=== PATIENT | female | born 1940 | race Caucasian/White ===

== ENCOUNTER 2021-03-26 06:48 | Outpatient (CLI) | payer SELFPAY, OTHER ==
--- NOTE | 2021-03-26 07:01 | CT_ITS ---
STUDY: CTA OF THE BRAIN REASON FOR EXAM: Female, 80 years old. 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 Data acquisition was obtained from the skull base through the vertex following intravenous administration of IV 75mL Isovue-[id number]. MIP images were reconstructed from the axial data set. Post-processing of the angiographic images was performed, with multiplanar reformation and 3D reconstruction. Individualized dose optimization techniques were used for this CT. COMPARISON: None. 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 Normal bilateral petrous carotid arteries. Normal right cavernous carotid artery with a normal supraclinoid bifurcation. Normal left cavernous carotid artery with a normal supraclinoid bifurcation. Normal right A1 segments of the anterior cerebral artery. Normal left A1 segments of the anterior cerebral artery. Normal intact anterior communicating artery (ACOM). Normal bilateral A2 segments of the anterior cerebral arteries. Normal right M1 and M2 segments of the middle cerebral arteries, with a normal M1 bifurcation. Normal left M1 and M2 segments of the middle cerebral arteries, with a normal M1 bifurcation. Normal right posterior communicating artery (PCOM). Normal left posterior communicating artery (PCOM). Normal bilateral vertebral arteries. Normal basilar artery with a normal basilar bifurcation. The visualized bilateral superior cerebellar (SCA) arteries are normal. Normal bilateral P1, P2 and visualized P3 segments of the posterior cerebral arteries. There is no demonstrated aneurysm of the [place] of [place]. There is no demonstrated abnormality of the visualized brain. 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 Electronically Signed: King Faye MD at 11:16 EST ,
[2021-03-26 07:21] LABS: CREATININE FINGERSTICK 1.2 mg/dL (0.55-1.02)
== END 2021-03-26 23:59 | disposition home or self-care (01) ==
PROVIDERS: PCP Family Medicine; Referring Provider Ophthalmology; Visit Provider Ophthalmology
DX: I72.0 Aneurysm of carotid artery (principal)
CPT/HCPCS: 70481; Q9967

== ENCOUNTER 2024-10-01 16:56 | Emergency (ER) | payer OTHER, SELFPAY ==
[2024-10-01 16:58] VITALS: BP 165/72; PULSE 77; RESP 14; TEMP 36.6; O2SAT 98; BMI 26.9
--- NOTE | 2024-10-01 18:26 | CT_ITS ---
PROCEDURE: SINUS/FACIAL BONE 10/01/2024 REASON FOR EXAM: FACIAL TRAUMA TECHNIQUE: SINUS/FACIAL BONE Coronal and Sagittal reconstruction series were provided. One or more dose reduction techniques were used (e.g., Automated exposure control, adjustment of the mA and/or kV according to patient size, use of iterative reconstruction technique). RADIATION DOSE SUMMARY: CTDlvol: - mGy DLP: - mGycm COMPARISON: None. FINDINGS: No acute bony abnormalities. No acute orbital abnormalities. The nasopharynx appears unremarkable. No paranasal sinus or mastoid cells fluid or mucosal thickening. Left frontal scalp hematoma. Streaky artifact from vascular coiling at the left internal carotid artery extending to the orbital apex. No visualized acute intracranial abnormalities. The temporomandibular joints are well aligned. CT/Sinus/Facial Bone IMPRESSION: No acute injuries to the maxillofacial bones. Left frontal scalp hematoma. Reading Location: [id number]
--- NOTE | 2024-10-01 18:26 | CT_ITS ---
PROCEDURE: BRAIN/HEAD WITHOUT CONTRAST 10/01/2024 REASON FOR EXAM: HEAD TRAUMA TECHNIQUE: BRAIN/HEAD WITHOUT CONTRAST Coronal and Sagittal reconstruction series were provided. One or more dose reduction techniques were used (e.g., Automated exposure control, adjustment of the mA and/or kV according to patient size, use of iterative reconstruction technique. RADIATION DOSE SUMMARY: CTDlvol: - mGy DLP: - mGycm COMPARISON: None. FINDINGS: Brain: Low density in the periventricular white matter suggests mild chronic small vessel ischemic changes. No acute territorial infarction. No acute intracranial hemorrhage. Status post vascular intervention and coiling near the left internal carotid artery and orbital apex. The orbits are intact. CSF Spaces: Moderate generalized cerebral atrophy Sinuses/Mastoids: Clear at visualized levels Bones: No acute bony abnormalities. Soft tissues: Left frontal scalp hematoma. CT/Brain/Head without Contrast IMPRESSION: No acute intracranial abnormalities. Reading Location: [id number]
--- NOTE | 2024-10-01 18:26 | CT_ITS ---
PROCEDURE: SPINE CERVICAL WITHOUT CONTRAS 10/01/2024 REASON FOR EXAM: FALL TECHNIQUE: SPINE CERVICAL WITHOUT CONTRAS Coronal and Sagittal reconstruction series were provided. One or more dose reduction techniques were used (e.g., Automated exposure control, adjustment of the mA and/or kV according to patient size, use of iterative reconstruction technique. RADIATION DOSE SUMMARY: CTDlvol: 29.38 mGy DLP: 668.06 mGycm COMPARISON: None. FINDINGS: Alignment: Normal. Vertebrae: No acute fractures. Soft Tissues: Unremarkable. 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 Lungs are clear. CT/Spine Cervical without Contras IMPRESSION: No acute injury to the cervical spine. Reading Location: [facility], [facility]
[2024-10-01 19:30] VITALS: BP 138/78; PULSE 78; O2SAT 99
--- OUTSIDE RECORDS SUMMARY | 2024-10-01 19:33 | XMS RPT_ITS | CCD ---
Author Organization [facility] Care Team Providers Care Federal Aid Coordinator Name Role Phone Unavailable Primary Care Provider UnavailReji Cruz Unavailable Papo Ayala DO Primary Care Provider Reji Washington Unavailable Papo Ayala DO Primary Care Provider SHARDA ESCALANTE Attending Unavailable SHANIKA MULLEN Attending Unavailable SHANIKA MULLEN Admitting Unavailable PAIGE HAMMONDS Referring Unavailable Medications Current Medications Medication Drug Class(es) Dates Sig (Normalized) Sig (Original) acetaminophen 325 mg oral tablet (2 sources) Start: 07-14-2021 End: 08-13-2021 take 2 tablets by mouth every four hours as needed acetaminophen (TYLENOL) 325 mg tablet 2 tablets by ORAL/FEEDING TUBE route every 4 hours as needed for pain. 120 tablet 0 07/14/2021 08/13/2021 Active Comment on above: 2 tablets by ORAL/FE EDING TUBE route every 4 hours as needed for pain. 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, nonruptured] Chronic Other and ill-defined cerebrovascular disease (1 source) Cerebral aneurysm, nonruptured; Translations: [Carotid-cavernou s fistula] Onset: 07-11-2021 Chronic Past or Other Problems Problem Classification Problem Date Documented Da te Episodic/Chronic Blindness and vision defects (1 source) Unspecified visual disturbance; Translations: [Vision changes] Onset: 07-11-2021 Episodic Results Test Name Value Interpretation Reference [facility] Telephone (NSEVMN) WILL BIANCHIIAM ([id number]) 1940 F Date Time Provider Department 01/07/22 REGAN DANIELLE During your visit today, we recorded the following information about you: Regan Danielle RN 01/07/2022 11:11 AM Signed Neuro IR nurse coordinator was told by family member that the angiogram scheduled for 01/11/22 was cancelled. I spoke with son Lyndsay, who confirmed they decided to cancel the angio for 01/11, had called to cancel (unknown who he called), and wanted to wait until after pt's eye appt next week to reschedule. Reviewed with Lyndsay the indication for the angiogram s/p symptomatic left carotid cavernous fistula coil embo 07/11/21 w/. Pt's vision is the best it's been in a long time Lyndsay stated. Asked Lyndsay to be sure to let us know about angio r/s decision (either yes or no) and he stated he would. If they do not want to r/s then check with Dr Hammonds about possible other imaging f/u. 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 Patient chose 01/11/[address] Mcgarry. This nurse will mail info on procedure to patient. Patient denies allergy to contrast dye, reports she is not diabetic, and does not currently take any medications. Will mail lab orders as well for CBC and CMP. Gave office number if any questions arise. JENNIFER Reyes 12/21/2021 11:44 AM Signed Received a call from patient's son Lyndsay Bianchi in reference to the appointment that is set for Jan.11 for a procedure. He is inquiring about whether or not the appointment is necessary since the patient has been doing well with no issues and also states that the patient has an upcoming appointment at [place] for Jan.18. Please call Lyndsay Bianchi at [phone] Mayra Carter RN 12/21/2021 12:33 PM Signed Spoke with patient's son, Lyndsay. Reviewed need for DSA to confirm complete occlusion of fistula. He verbalized understanding. Discussed angiogram and labs needed. Discussed that letter was mailed with information, he will monitor for it. Lyndsay reports that his mom has an eye appointment on 01/18/22. Also updated contact information. Lyndsay states that primary contact should be his brother, Abelardo, for any medical scheduling or questions. This nurse updated chart. Lyndsay also asked about financial information, this nurse gave number for financial counseling to discuss costs. Lyndsay appreciated phone call. This nurse gave office number in case any future questions or concerns arise. 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] 07/11/2021 Decreased vision of left eye [H54.62] 07/13/2021 Encounter Status:Closed by MAYRA CARTER on 12/17/21 [facility] CNNURSEon 07-26-2021 CNNURSE Nurse Visit (NECVS8) ALBERTO BIANCHI ([id number]) 1940 F Date Time Provider Department 07/26/21 11:00 AM CEREBROVASCULAR NURSE SURGICALNECVS8 During your visit today, we recorded the following information about you: Pulse Blood pressure 82/minute 136/67 Paola Dailey RN 07/26/2021 1:32 PM Signed [facility] Post-Op Follow Up Visit Alberto Bianchi [facility]#: [id number] Date of Service: 07/26/2021 Primary Care Provider: No primary care provider on file. Symptomatic Carotid cavernous fistula s/p direct venous access coil embo 07/13/[address] Mims with Dr. Hammonds assisting f/up with Dr. Hammonds's office FOLLOW UP VISIT Alberto Bianchi is a 80 year old female, who presents for neurologic evaluation following Infraorbital approach to obtain venous access for CCF embolization and vein ligation of left carotid-cavernous fistula on 07/13/2021. This is 2 week PCP: No primary care provider on file. Referring Provider: Dr. Paige Hammonds Reason for Visit: wound check Hypertension NA Coronary Artery Disease NA Diabetes NA Obesity NA Dyslipidemia NA Tobacco Use (Please Update Smoking History) NA Stroke NA Intracranial Aneurysm NA Past Medical History: ACTIVE PROBLEM LIST Carotid-Cavernous Fistula Decreased Vision of Left Eye No past surgical history on file. Allergies: Patient has no known allergies. Medications: Current Outpatient Medications Medication Sig - acetaminophen (TYLENOL) 325 mg tablet 2 tablets by ORAL/FEEDING TUBE route every 4 hours as needed for pain. No current facility-administered medications for this visit. Social History Tobacco Use - Smoking status: Never Smoker - Smokeless tobacco: Never Used Substance Use Topics - Alcohol use: Not on file - Drug use: Not on file Review of Systems Neurological: Positive for weakness. Negative for aphasia, dizziness, headaches, memory difficulty, numbness/tingling and slurred speech. Patient Entered Questionnaires PROMIS/NeuroQoL Score Percentiles Physical Health 07/26/2021 Physical Function Percentile 4 Sleep Percentile 54 Fatigue Percentile 10 Pain Interference Percentile 84 PROMIS SOCIAL ROLE SCORE 07/26/2021 Social Role Satisfaction Percentile 27* Mental Health 07/26/2021 NeuroQol Cognitive Function Percentile 27* General Self-Efficacy Percentile 82 PROMIS Global Health Scale 07/26/2021 Physical Health Percentile 78 Mental Health Percentile 82 Percentiles provide an indication of how a patient's score ranks in relation to the [place] general population. > 31st percentile is within normal limits or better * < 31st percentile is at least ? SD worse than population, which may be clinically relevant < 16th percentile is at least 1 SD worse than population and warrants attention Depression Screening: PHQ-9 07/26/2021 Score 5 Self-Harm Response 0 PHQ-9 Scores: PHQ-9 Self-Harm (Item 9) Response: 0 - 9 No to Mild depression 0 - Not at all 10 - 14 Moderate depression 1 - Several Days > 15 Severe depression 2 - More than half the days 3 - Nearly every day Sleep Apnea Probability Score 07/26/2021 Sleep Apnea Screen V2 40.47 (Sleep study not recommended) Paola Dailey RN PHYSICAL EXAMINATION BP 136/67 (BP Site: Right Arm, BP Position: Sitting, BP Cuff Size: Regular Adult) Pulse 82 SpO2 96% Left periorbital incision clean, dry, and sutures intact. No redness, swelling, or drainage present. Stroke Mechanism and Scales IMPRESSION Sutures removed under the supervision of Dr. Hammonds and associates. Discussed continued wound care education and instructions and when to report for emergent care. Return to clinic for follow up appointment with Sharda Escalante Np on 08/07/21 for virtual visit. SIGNATURE Paola Dailey RN Referring Provider: PAIGE HAMMONDS [[id number]] Allergies As of Date: 07/26/2021 (No Known Allergies) Date Reviewed: 07/26/2021 Reviewed by: Ayanna Childs - Fully Assessed Reason for Visit: Post Op [174] Primary Visit Diagnosis:Carotid-ciro nous fistula [I67.1] Prescriptions as of 07/26/2021 - acetaminophen (TYLENOL) 325 mg tablet 2 tablets by ORAL/FEEDING TUBE route every 4 hours as needed for pain. 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 attempt made. No answer. Prescriptions as of 07/18/2021 - acetaminophen (TYLENOL) 325 mg tablet 2 tablets by ORAL/FEEDING TUBE route every 4 hours as needed for pain. 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] 07/11/2021 Decreased vision of left eye [H54.62] 07/13/2021 Encounter Status:Closed by CHRISTINE MORALES on 07/18/21 [facility] CNDSon 07-14-2021 CNDS HNO ID: [id number] Author: Julian Mar APRN.SCROLL MACHINE OPERATOR Service: Neurosurgery Author Type: Nurse Practitioner Type: Discharge Summary Filed: 07/14/2021 5:09 PM Note Text: Attestation signed by Shanika Mullen MD at 07/16/2021 8:24 AM Shanika Mullen MD DISCHARGE SUMMARY NEURO STROKE PATIENT NAME: Alberto Bianchi ADMISSION DATE: 07/10/2021 DISCHARGE DATE: 07/14/2021 Attending Physician: Shanika Mullen MD PCP: No primary care provider on file. Code Status: Not on file Highest Readmission Risk Score: 11 The 30 day readmissions risk score is derived from an internally validated risk model which evaluates patient level characteristics, utilization history, medication orders and lab results up until the day of discharge. Patients with a score of 40 or above are considered highest risk for readmission. Specific patient level drivers will be listed at the bottom of the summary. Reason for Hospitalization: Carotid cavernous fistula Principal Problem: Carotid-cavernous fistula POA: Yes Resolved Problems: * No resolved hospital problems. * Operations During Hospitalization: None Procedures During Hospitalization: 07/11/2021 Diagnostic angiogram: 1. 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 Venous filling of the intercavernous sinus, left posterior cavernous sinus, left IOV and left facial vein are demonstrated. Bilateral inferior petrosal sinuses are not visualized, possibly occluded 2. Severe proximal cervical large vessel tortuosity, limiting catheterization 07/12/2021 Angiogram: Unsuccessful attempt at embolization 07/13/2021: Angiogram: Infraorbital approach to obtain venous access for CCF embolization and vein ligation 07/14/2021 pt is having no pain, ambulating, eating, voiding, and passing flatus. Updated dr. Mullen and Dr. Hammonds. Pt is ready for DC today. Stroke Risk Factors: Hypertension NA Coronary Artery Disease NA Diabetes NA Obesity NA Dyslipidemia NA Tobacco Use (Please Update Smoking History) NA Stroke NA Intracranial Aneurysm NA Body Mass Index (BMI) BMI: 0 Total Cholesterol (at time of admission) No results found for this basename: chol:1 HDL (at time of admission) No results found for this basename: hdl:1 LDL (at time of admission) No results found for this basename: ldl:1 HbA1c No results found for: HBA1C Tests/Procedures Performed: 07/11/2021 CTA head/ Neck: IMPRESSION: No hemodynamically significant stenosis or large vessel occlusion. 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 ?MRI with arterial spin labeling sequence or digital subtraction angiography should be considered to confirm as clinically warranted. Hospital Course: The patient was emergently admitted through the Emergency Department to the [facility] with worsened vision and found to have CCF on CTA. The patient underwent a diagnostic angiogram which confirmed left carotid-cavernous fistula from left meningohypophyseal branches and small right carotid to cavernous small collaterals. The patient underwent a unsuccessful arterial embolization on 07/12. She subsequently underwent a successful Infraorbital approach to obtain venous access for CCF embolization and vein ligation on 07/13/2021 The patient tolerated the procedure and was taken to PACU, and then to the hospital surgical floor when PACU criteria was made. The patient was then transferred up to Neuro SDU hospital room for postoperative management. Patient was fitted with fitted with sequential compression devices for DVT prophylaxis. The patient was discharged on POD # 1 in stable condition. Complete and comprehensive discharge instructions were provided to the patient as well as necessary prescriptions. The patient had no further questions and was advised to call with any questions, concerns, or problems. Patient's pain was well controlled with Oral Pain Medications. Patient was hemodynamically stable postoperatively. Consulting Teams During Hospitalization: Opthalmology Treatment Team: Attending Provider: Shanika Mullen MD Nurse Practitioner: Cailin Link APRN.SCROLL MACHINE OPERATOR Patient Condition @ Discharge: Good Discharge Disposition: Home with Relative PHYSICAL EXAM: General: AANDO x 3 to name, place and time; no apparent distress. Lungs: Clear to auscultation bilaterally. No excessive effort. Cardiac: RRR, no m/r/g Abdomen: soft, nontender, nondistended, + BS x 4 Skin: left eye incision well approximated, secure with sutures. Right radial site clean/dry/intact, no crepitus or pain noted. Psychiatric: Appropriate mood and af (more content not included)... [facility] THERAPY NTon 07-14-2021 THERAPY NT HNO ID: [id number] Author: Mare Candelario, OTR/L Service: Occupational Therapy Author Type: Occupational Therapist Type: Therapy (PT/OT/Speech/Resp) Filed: 07/14/2021 9:48 AM Note Text: Occupational Therapy Evaluation SERVICE DATE: 07/14/2021 SERVICE TIME: 0842 to 0921 ROOM: [address] Recommended Discharge Disposition: Home Anticipated Discharge Needs: Physical Assist at Home Physical Assist at Home for: Transportation;Shopping ;Safety;Stairs;Meals;La undry;Cleaning OT 6 Clicks Score: 23 Current Hospital Course: presenting with OSH CTA c/f bilateral CCF in setting of worsening vision and diplopia over past 1 week. 07/13/21 Infraorbital approach to obtain direct venous access for CCF coil embolization and inferior orbital vein ligation Reason for Hospital Admission: Carotid-cavernous fistula Relevant Past Medical History: 80 year old right-handed female with PMHx b/l cataracts surgery in 2006 with recent scar revision in 03/2021 Response to Therapy Interventions: Good participation in activities Pt tolerated session well. Appears and reports no further visual impairments and able to successfully navigate environment in hospital setting. No further acute OT needs anticipated at this time. Mild cognitive impairment present, however, pt reporting cognitive changes prior to admission and not affecting IND at home. Will d/c OT orders at this time. Cognition/Communication Deficits Orientation Deficits: Not oriented to Time Responsiveness: Alert, Awake Follows Commands: 3-step Commands Cognitive Clinical Tests and Screens: 4AT Screening Cognitive Activities Performed: reorientation as needed 4AT Screening Assess alertness (ask patient to state their name and address): Normal (fully alert, but not agitated, throughout assessment) Ask patient: age, date of , current year, and current location: 1 mistake Ask patient to tell me the months of the year backwards order, starting with January: Starts but states <7 months / refuses to start Acute change or fluctuating mental status: No 4AT Score: 2 Delirium Positive/Negative: Negative Treatment Interventions: Education;Self Care / Home Management;Functional Mobility Training;Balance Training;Cognitive Training;Neuromuscular Re-education Home Environment Patient Lives With: Family Assistance Available: 24 Hour Entry To Home: Stairs Number Of Stairs Into Home: 5 Number Of Stairs To Bed/Bath: 11 Tub/Shower Type: tub/shower Laundry: family can complete Equipment Owned: Cane;Wheeled Walker Prior Functional Level: Within Functional Limits;History of Falls Prior Functional Level 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: 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, 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 Patient Report: It will feel good to move CURRENT FUNCTIONAL STATUS: Most recent performance Current Activities of Daily Living Assist Level Additional Information Feeding Independent Grooming Independent Bathing Upper Body Independent Bathing Lower Body Stand By Assistance Dressing Upper Body Independent Dressing Lower Body Stand By Assistance Toileting Stand By Assistance Instrumental Activities of Daily Living Assist Level Additional Information Meal/Beverage Prep Cleaning Laundry Medication Management with Strategies Functional Mobility Assist Level Additional Information Rolling Supervision Supine to Sit Supervision Sit to Supine Scooting Sit to Stand Stand By Assistance Stand to Sit Stand By Assistance Bed to Chair Stand By Assistance Toilet/Commode Stand By Assistance Shower Functional Mobility Stand By Assistance IV Pole Blank richter indicate activity not attempted Balance: Static Standing;Dynamic Standing Static Standing Balance: Normal Patient able to maintain steady balance without handhold support Dynamic Standing Balance: Good Patient accepts moderate challenge, able to maintain balance while picking up object off floor Learning/Educational Needs: Discharge Plan;Family Education/Training;Plan of Care;Safety Goals for Plan of Care: Patient /Caregiver Goals: Go Home Goals: Patient will demonstrate understanding of importance of mobility during hospital stay and resolve all self-care, cognitive and/or coping needs identified. Progress Toward Goals: Progressing as expected Rehab Potential: Excellent Patient will be discontinued from Occupational Therapy when no further skilled needs are identified in this setting. PLAN: OT Frequency: Discontinue therapy services Reasons Therapy Services Discontinued: No skilled needs Plan of Care developed with: Patient TREATMENT INTERVENTIONS: Therapy Diagnosis: Decreased activities of daily living (ADL) Interventions Provided: Evaluation;Therapeutic Activity (16407);Self Group Home Management (94180) $ Evaluation-Low (10916) Billed Units: 1 unit Therapeutic Activity (87000) Treatment Minutes: 8 $ Therapeutic Activity (09941) Billed Units: 1 unit Self Group Home Management (02470) Treatment Minutes: (more content not included)... Normal [facility] THERAPY NT HNO ID: [id number] Author: Jaz Bliss PT, DPT Service: Physical Therapy Author Type: Physical Therapist Type: Therapy (PT/OT/Speech/Resp) Filed: 07/14/2021 6:55 AM Note Text: PHYSICAL THERAPY COMMUNICATION SERVICE DATE: 07/14/2021 ROOM: [address] Physical therapy consult received. Chart reviewed. No acute skilled physical therapy needs identified. Pt with a documented Nursing 6 Clicks score of 23-24 indicating that the patient is supervised or independent with all mobility. Will discontinue Physical Therapy Consult at this time. Please re consult if the patient has a change of condition and develops mobility deficits that require skilled therapy. SIGNATURE: Jaz Bliss PT, DPT PATIENT NAME: Alberto Bianchi DATE: July 14, 2021 TIME: 6:55 AM [facility] ANES POSTPROC EVALon 022 ANES POSTPROC EVAL HNO ID: [id number] Author: Jerry Genao MD Service: ? Author Type: Anesthesiologist Type: Anesthesia Postprocedure Evaluation Filed: 07/13/2021 1:09 PM Note Text: POST ANESTHESIA EVALUATION NOTE : 1940 Procedure Summary Date: 07/13/21 Room / Location: [address] [facility] Anesthesia Start: 49 Anesthesia Stop: 1203 Procedures: SELECTIVE CATH PLACEMENT COMMON CAROTID OR INNOMINATE ARTERY BILATERAL W/ ANGIOGRAPHY OF THE IPSILATERAL EXTRACRANIAL CAROTID CIRCULATION AND ALL ASSOCIATED W/ ANGIOGRAPHY OF THE CERVICOCEREBRAL ARCH (Right Groin) CRANIOTOMY FRONTAL (Left Eye lid) Diagnosis: Cerebrovascular malformation, dural AV fistula Surgeons: Faheem Mims MD; Paige Hammonds MD Responsible Provider: Jerry Genao MD Anesthesia Type: general ASA Status: 3 Anesthesia Type: general Airway Type: ETT Last Vitals Vitals Value Taken Time BP 130/61 07/13/21 1300 Temp 36.7 ?C (98.1 ?F) 07/13/21 1203 Pulse 84 07/13/21 1307 Resp 12 07/13/21 1307 SpO2 98 % 07/13/21 1307 Vitals shown include unvalidated device data. Post Anesthesia Patient Status Patient Evaluation: PACU. PACU/ICU Patient Condition: stable. Anticipated Disposition: phase 2 then home. Neurological Status: aware and responsive. Pulmonary Status: breathing comfortably on room air Airway Control: returned to baseline unsupported. Cardiovascular Status: stable. Pain Management: clinically adequate Postoperative Hydration: acceptable. Intraoperative Events: no significant anesthesia events Post Operative Nausea/Vomiting Status: no significant post operative nausea or vomiting Anesthetic Observations: Recommendation: continue current plan of care. Anesthesia Observations No Documentation SIGNATURE: Jerry Genao MD PATIENT NAME: Alberto Bianchi DATE: July 13, 2021 TIME: 1:09 PM CSN: [id number] [facility] ANES POSTPROC EVAL HNO ID: [id number] Author: Gayatri Linares MD Service: ? Author Type: Anesthesiologist Type: Anesthesia Postprocedure Evaluation Filed: 07/13/2021 8:28 AM Note Text: POST ANESTHESIA EVALUATION NOTE : 1940 Procedure Summary Date: 07/12/21 Room / Location: [address] [facility] Anesthesia Start: 105 Anesthesia Stop: 170 Procedure: SELECTIVE CATH PLACEMENT COMMON CAROTID OR INNOMINATE ARTERY BILATERAL W/ ANGIOGRAPHY OF THE IPSILATERAL EXTRACRANIAL CAROTID CIRCULATION AND ALL ASSOCIATED W/ ANGIOGRAPHY OF THE CERVICOCEREBRAL ARCH (N/A Groin) Diagnosis: Cerebrovascular malformation, dural AV fistula Surgeons: Faheem Mims MD Responsible Provider: Gayatri Linares MD Anesthesia Type: general ASA Status: 3 Anesthesia Type: general Airway Type: ETT Last Vitals Vitals Value Taken Time BP 102/59 07/13/21 0825 Temp 36.9 ?C (98.4 ?F) 07/13/21 042 Pulse 84 07/13/21 08 Resp 17 07/13/21 0422 SpO2 99 % 07/13/21 08 Post Anesthesia Patient Status Patient Evaluation: PACU. PACU/ICU Patient Condition: stable. Anticipated Disposition: inpatient floor planned admission. Neurological Status: aware and responsive. Pulmonary Status: breathing comfortably on room air Airway Control: returned to baseline unsupported. Cardiovascular Status: stable. Pain Management: clinically adequate Postoperative Hydration: acceptable. Intraoperative Events: no significant anesthesia events Post Operative Nausea/Vomiting Status: no significant post operative nausea or vomiting Anesthetic Observations: Recommendation: continue current plan of care. Anesthesia Observations No Documentation SIGNATURE: Gayatri Linares MD PATIENT NAME: Alberto Bianchi DATE: July 13, 2021 TIME: 8:27 AM CSN: [id number] Normal [facility] ANES PRE-OPon 07-13-2021 ANES PRE-OP HNO ID: [id number] Author: Jerry Genao MD Service: ? Author Type: Anesthesiologist Type: Anesthesia Preprocedure Evaluation Filed: 07/13/2021 8:03 AM Note Text: ANESTHESIOLOGY DAY OF SURGERY NOTE : 1940 Procedure Information Anesthesia Start Date/Time: 07/13/21 0749 Procedure: SELECTIVE CATH PLACEMENT COMMON CAROTID OR INNOMINATE ARTERY BILATERAL W/ ANGIOGRAPHY OF THE IPSILATERAL EXTRACRANIAL CAROTID CIRCULATION AND ALL ASSOCIATED W/ ANGIOGRAPHY OF THE CERVICOCEREBRAL ARCH (N/A Groin) Location: MAIN OR / MAIN PAVILION Surgeons: Faheem Mims MD There is no height or weight on file to calculate BMI. Most recent hematocrit and potassium results: Hematocrit 35.9 07/11/2021 Potassium 4.3 07/11/2021 Relevant Problems CARDIO (+) Carotid-cavernous fistula I - PHYSICAL EVALUATION AIRWAY Patient intubated: No. Tracheostomy tube not present Mallampati: II. TM distance: >3 FB. Neck ROM: full ROM without neurological symptoms. Mouth opening: adequate. Short neck: no. Thick neck: no DENTAL Dental findings: missing tooth/teeth. Dentures, upper: complete. Additional exam findings: no II - ANESTHESIA PLAN ASA Score: 3 Anesthetic Plan: general Airway type: ETT The patient is not a current smoker. NPO Status: adequate Monitoring plan: standard ASA and invasive hemodynamic monitoring. Monitoring method: arterial Line Postoperative analgesic plan: multimodal analgesia. Informed Consent Anesthetic risks, benefits, alternatives, personnel and consent discussed: yes. Patient / Responsible Democrat agrees to proceed: yes Patient / Surrogate agrees to blood products: Yes Significant changes in the patient condition since the History and Physical, not otherwise documented in primary service progress note: no. Potential Anesthesia issues that may suggest increased risk of complications or contraindication to planned procedure: none. No vitals data found for the desired time range. Facility-Administered Medications as of 07/13/2021 Medication Dose Route Frequency - sodium chloride 0.9 % (flush) 3-5 mL (BD POSIFLUSH) 3-5 mL INTRAVENOUS q 12 H - [COMPLETED] lidocaine (PF) 10 mg/mL (1 %) injection (XYLOCAINE) SUBCUTANEOUS PRN - [COMPLETED] verapamil injection PRN - [COMPLETED] heparin 1,000 unit/mL injection PRN - [COMPLETED] nitroglycerin iv vial 100mcg/mL PRN - sodium chloride 0.9 % (flush) 2-10 mL (BD POSIFLUSH) 2-10 mL INTRAVENOUS q 12 H - sodium chloride 0.9 % (flush) 3-5 mL (BD POSIFLUSH) 3-5 mL INTRAVENOUS q 12 H - ondansetron (PF) 4 mg injection (ZOFRAN) 4 mg INTRAVENOUS q 6 H PRN - senna-docusate 8.6-50 mg 1 tablet (SENNA-S) 1 tablet ORAL/FEEDING TUBE BID - NaCl 0.9% iv flush bag 20 mL INTRAVENOUS PRN - sodium chloride 0.9 % (flush) 3-5 mL (BD POSIFLUSH) 3-5 mL INTRAVENOUS q 12 H - NaCl 0.9% iv infusion 75 mL/hr INTRAVENOUS CONTINUOUS - acetaminophen 650 mg tab(s) (TYLENOL) 650 mg ORAL/FEEDING TUBE q 4 H PRN - oxyCODONE IR 5-10 mg tab(s) (ROXICODONE) 5-10 mg ORAL/FEEDING TUBE q 4 H PRN - [COMPLETED] fentaNYL 50 mcg/mL injection (SUBLIMAZE) INTRAVENOUS PRN - [COMPLETED] midazolam (PF) injection (VERSED) INTRAVENOUS PRN - [COMPLETED] nitroglycerin iv vial 100mcg/mL PRN - [COMPLETED] verapamil injection PRN - [COMPLETED] heparin 1,000 unit/mL injection PRN - [COMPLETED] NaCl 0.9% iv infusion INTRAVENOUS X (ONE-STEP ONLY) CONTINUOUS PRN - [COMPLETED] lidocaine 2 % (XYLOCAINE) TOPICAL PRN No current outpatient medications on file as of 07/13/2021. I have interviewed and examined the patient. I have reviewed the medical record and/or the pre-anesthesia evaluation, pertinent labs, and test results. This contains updated information obtained within 48 hours of Surgery/Procedure. SIGNATURE: Jerry Genao MD PATIENT NAME: Alberto Bianchi DATE: July 13, 2021 TIME: 8:02 AM CSN: [id number] Normal [facility] ARTERIAL BLOOD GASES WITH IO NIZED MAGNESIUMon 07-13-2021 BASE DEFICIT, ARTERIAL -2 mmol/L Normal -2-0 [facility] Comment on above: Order Comment: Speci men Type: ARTERIAL BLOOD SPECIMENOrdering Facility: [facility] Address: [address] [place] [address] Performed By: #### A LLMG ####[facility] [id number] [place] [address] [place] CALCIUM IONIZED, PH CORRECTED 1.14 mmol/L Normal 1.08-1.30 [facility] Comment on above: Order Comment: Speci men Type: ARTERIAL BLOOD SPECIMENOrdering Facility: [facility] Address: [address] [place] [address] Performed By: #### A LLMG ####[facility] [id number] [place] [address] [place] Calcium.ionized (Bld) [Mass/Vol] 1.12 mmol/L Normal 1.08-1.30 [facility] Comment on above: Order Comment: Speci men Type: ARTERIAL BLOOD SPECIMENOrdering Facility: [facility] Address: [address] [place] [address] Performed By: #### A LLMG ####[facility] LABCLIA [id number] [address] [place] Carboxyhemoglobin (BldA) [Mass fraction] 1.4 % Normal 0.0-2.0 [facility] Comment on above: Order Comment: Speci men Type: ARTERIAL BLOOD SPECIMENOrdering Facility: [facility] Address: [address] [place] [address] Result Comment: Carb oxyhemoglobin Reference Range for Smokers: 2.0-8.0% Performed By: #### A LLMG ####[facility] LABCLIA [id number] [address] [place] CO2 (Bld) [Partial pressure] 34 mm Hg Low 36-46 [facility] Comment on above: Order Comment: Speci men Type: ARTERIAL BLOOD SPECIMENOrdering Facility: [facility] Address: [address] [place], [place] [id number] Performed By: #### A LLMG ####[facility] LABCLIA [id number] [place] [address] [place] CO2 [Moles/Vol] 23 mmol/L Normal 22-28 [facility] Comment on above: Order Comment: Speci men Type: ARTERIAL BLOOD SPECIMENOrdering Facility: [facility] Address: [address] [place] [address] Performed By: #### A LLMG ####[facility] LABCLIA [id number] [place] [address] [place] CO2 adjusted to patient's actual temperature (Bld) [Partial pressure] 34 mmHg Low 36-46 [facility] Comment on above: Order Comment: Speci men Type: ARTERIAL BLOOD SPECIMENOrdering Facility: [facility] Address: [address] [place] [address] Performed By: #### A LLMG ####[facility] LABCLIA [id number] [place] [address] [place] Glucose [Mass/Vol] 109 mg/dL High 60-105 [facility] Comment on above: Order Comment: Speci men Type: ARTERIAL BLOOD SPECIMENOrdering Facility: [facility] Address: [address] [place], [place] [id number] Performed By: #### A LLMG ####[facility] LABCLIA [id number] [place] [address] [place] HCO3 (Bld) [Moles/Vol] 22 mmol/L Normal 22-26 [facility] Comment on above: Order Comment: Speci men Type: ARTERIAL BLOOD SPECIMENOrdering Facility: [facility] Address: [address] [place] [address] Performed By: #### A LLMG ####[facility] LABCLIA [id number] [place] [address] [place] Hematocrit (Bld) [Volume fraction] 31.2 % Low 36.0-46.0 [facility] Comment on above: Order Comment: Speci men Type: ARTERIAL BLOOD SPECIMENOrdering Facility: [facility] Address: [address] [place], [place] [id number] Performed By: #### A LLMG ####[facility] LABCLIA [id number] [place] [address] [place] Hemoglobin (Bld) [Mass/Vol] 10.1 g/dL Low 11.5-15.5 [facility] Comment on above: Order Comment: Speci men Type: ARTERIAL BLOOD SPECIMENOrdering Facility: [facility] Address: [address] [place], [place] [id number] Performed By: #### A LLMG ####[facility] LABCLIA [id number] [place] [address] [place] Lactate [Moles/Vol] 0.8 mmol/L Normal 0.5-2.2 [facility] Comment on above: Order Comment: Speci men Type: ARTERIAL BLOOD SPECIMENOrdering Facility: [facility] Address: [address] [place], [place] [id number] Performed By: #### A LLMG ####[facility] LABCLIA [id number] [place] [address] [place] Magnesium [Moles/Vol] 0.49 mmol/L Normal 0.43-0.66 [facility] Comment on above: Order Comment: Speci men Type: ARTERIAL BLOOD SPECIMENOrdering Facility: [facility] Address: [address] [place], [place] [id number] Performed By: #### A LLMG ####[facility] LABCLIA [id number] [address] [place] Methemoglobin (Bld) [Mass fraction] 0.6 % Normal 0.0-1.5 [facility] Comment on above: Order Comment: Speci men Type: ARTERIAL BLOOD SPECIMENOrdering Facility: [facility] Address: [address] [place], [place] [id number] Performed By: #### A LLMG ####[facility] LABCLIA [id number] [address] [place] Oxygen (Bld) [Partial pressure] 188 mm Hg High 85-95 [facility] Comment on above: Order Comment: Speci men Type: ARTERIAL BLOOD SPECIMENOrdering Facility: [facility] Address: [address] [place] [address] Performed By: #### A LLMG ####[facility] LABCLIA [id number] [place] [address] [place] Oxygen adjusted to patient's actual temperature (Bld) [Partial pressure] 188 mmHg High 85-95 [facility] Comment on above: Order Comment: Speci men Type: ARTERIAL BLOOD SPECIMENOrdering Facility: [facility] Address: [address] [place] [id number] Performed By: #### A LLMG ####[facility] LABCLIA [id number] [place] [address] [place] OXYGEN SATURATION, ARTERIAL 100 % High 95-98 [facility] Comment on above: Order Comment: Speci men Type: ARTERIAL BLOOD SPECIMENOrdering Facility: [facility] Address: [address] [place], [place] [phone] Performed By: #### A LLMG ####[facility] LABCLIA [id number] [place] [address] [place] Oxyhemoglobin (BldA) [Mass fraction] 98 % Normal 95-98 [facility] Comment on above: Order Comment: Speci men Type: ARTERIAL BLOOD SPECIMENOrdering Facility: [facility] Address: [address] [place] [address] Performed By: #### A LLMG ####[facility] LABCLIA [id number] [place] [address] [place] pH (Bld) 7.43 [pH] Normal 7.35-7.45 [facility] Comment on above: Order Comment: Speci men Type: ARTERIAL BLOOD SPECIMENOrdering Facility: [facility] Address: [address] [place] [phone] Performed By: #### A LLMG ####[facility] LABCLIA [id number] [place] [address] [place] pH adjusted to patient's actual temperature (Bld) 7.43 Normal 7.35-7.45 [facility] Comment on above: Order Comment: Speci men Type: ARTERIAL BLOOD SPECIMENOrdering Facility: [facility] Address: [address] [place], [place] [phone] Performed By: #### A LLMG ####[facility] LABCLIA [id number] [place] [address] [place] Potassium [Moles/Vol] 3.7 mmol/L Normal 3.5-5.0 [facility] Comment on above: Order Comment: Speci men Type: ARTERIAL BLOOD SPECIMENOrdering Facility: [facility] Address: [address] [place] [address] Performed By: #### A LLMG ####[facility] LABCLIA [id number] [address] OF [facility] Sodium [Moles/Vol] 143 mmol/L Normal 136-144 [facility] Comment on above: Order Comment: Speci men Type: ARTERIAL BLOOD SPECIMENOrdering Facility: [facility] Address: [address] [place] [address] Performed By: #### A LLMG ####[facility] LABCLIA [id number] [address] BRIEF OP NOTon 07-13-2021 BRIEF OP NOT HNO ID: [id number] Author: Kaley Sorenson MD Service: Neurosurgery Author Type: Resident Type: Brief Op Note Filed: 07/13/2021 11:45 AM Note Text: BRIEF OPERATIVE / PROCEDURE NOTE LOG ID: [id number] SURGERY/PROCEDURE DATE: 07/13/2021 INCISION/PROCEDURE START TIME: 8:51 AM INCISION CLOSE/PROCEDURE END TIME: 11:35 AM SURGEON(S)/PROCEDURALIS T(S) AND IT FIELD TECHNICIAN(S): Surgeon(s) and Role: Panel 1: * Faheem Mims MD - Primary * Alejandro Frank MD - Fellow Panel 2: * Paige Hammonds MD - Primary * Kaley Sorenson MD - Resident - Assisting No Additional Staff SURGERY/PROCEDURE(S): Infraorbital approach to obtain venous access for CCF embolization and vein ligation ANESTHESIA: General FINDINGS: Successful cannulization of abnormal left inferior orbital vein and microcatheter placement for coil embolization of CCF and ligation of vein ESTIMATED BLOOD LOSS: 5 ml SPECIMENS: None COMPLICATIONS: None PRE-OP/PRE-PROCEDURE DIAGNOSIS: CCF POST-OP/POST-PROCEDURE DIAGNOSIS: Same as Preop SIGNATURE: Kaley Sorenson MD PATIENT NAME: Alberto Bianchi DATE: July 13, 2021 TIME: 11:41 AM Normal [facility] BRIEF OP NOT HNO ID: [id number] Author: Faheem Mims MD Service: Radiology Author Type: Physician Type: Brief Op Note Filed: 07/13/2021 11:57 AM Note Text: BRIEF OP/PROCEDURE NOTE NEURO INTERVENTIONAL PROCEDURE DATE: July 13, 2021 LOG ID: [id number] Surgery/Procedure Date: 07/13/2021 Incision/Procedure Start Time: 8:51 AM Incision Close/Procedure End Time: 11:35 AM Anesthesia: General PRIMARY PROCEDURALIST: Faheem Mims M.D. PRIMARY NEUROSURGEON: Paige Hammonds MD IT FIELD TECHNICIAN(S): Alejandro Frank MD, Kaley Sorenson MD PROCEDURE: Diagnostic CervicoCerebral Angiography Intracranial Embolization AVM via surgical cutdown approach Indications: indirect CCF Access Site: 1. right radial 2. 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 Author Type: Chucking And Boring Machine Operator Type: Care Mgt Progress Note Filed: 07/13/2021 10:01 AM Note Text: CARE MANAGEMENT PROGRESS NOTE SERVICE DATE: 07/13/2021 SERVICE TIME: 9:59 AM LOS: 2 days Needs Prior to Discharge: Procedure Per AM team sign out, POSSIBLE WEEKEND DISCHARGE. Plan for Pt to go to the OR today (07/13/2021) for endovascular treatment. Anticipated Pt will be D/C ready over the weekend. Anticipated Pt will be able to be D/C back to home with no skilled needs vs. outpatient therapy once medically ready for D/C. Plan for Pt to be transported home via family auto. If immediate needs arise, [place] [phone]. CM will follow up if needed. SIGNATURE: Mallory KEVIN, COMPOUND SPECIALIST PATIENT NAME: Alberto Bianchi DATE: July 13, 2021 TIME: 9:59 AM PAGER/CONTACT #: Normal [facility] IR CAROTID BILon 07-13-2021 IR CAROTID ANGIE * * *Final Report* * * DATE OF EXAM: Jul 13 2021 12:12PM NDA [id number] - IR CAROTID ANGIE / PROCEDURE REASON: Carotid artery-cavernous sinus fistula * * * * Physician Interpretation * * * * Endovascular Surgical Neuroradiology Report CLINICAL HISTORY: This patient is a 80 years-old Female who presents with indirect carotid cavernous fistula. Patient status-post attempted, but unsuccessful, transvenous embolization. Patient presents today for fistula embolization via direct surgical access into the left inferior ophthalmic vein. PROCEDURE: 1. Direct surgical cutdown and access of the left inferior ophthalmic vein. 2. Ultrasound-guided right radial artery access. 3. IADSA of the left common carotid artery. 4. Coil-embolization of the patient's carotid cavernous fistula. 5. Follow-up cerebral angiography. INFORMED CONSENT: The procedural risks, benefits, alternatives and complications were discussed with the patient and patient's family. All questions were answered and they requested that we proceed. PRE-PROCEDURAL DIAGNOSIS: Indirect Carotid Cavernous Fistula. POST-PROCEDURAL DIAGNOSIS: Same. TIME OUT TIME: 8:51 AM PROCEDURE START TIME: 8:51 AM PROCEDURE END TIME: 11:35 AM ATTENDING: Faheem Mims MD IT FIELD TECHNICIAN (FELLOW): Alejandro Frank MD The procedure was performed by the attending, with an esl instructional assistant. ANESTHESIA: General anesthesia was provided by the anesthesiology team. Pulsed oximetry, cardiopulmonary monitoring and electrocardiography was performed throughout the procedure. Local anesthesia was provided with 1% lidocaine over the right wrist. ANGIOGRAPHY MATERIALS: Diagnostic Catheter: 5 Maltese Galvan 2 Catheter Microcatheter: [employer] Headway 17 Microwire: [place] Synchro2 Soft 0.014 Fluoroscopic Radiation Summary: Plane A, Air Kerma: 749.8 mGy Plane B, Air Kerma: 190.4 mGy Dose Area Product (DAP): 17839.3 mGy*cm2 Fluoro time: 31:30 min:sec Radiation dose exceed 5 Gy: No If radiation dose exceeded 5 Gy, was counseling and instructional brochure provided:N/A Contrast (intra-arterial): 65 ml of OMNIPAQUE 300 TECHNIQUE: After aruna discussion of the risks and benefits of endovascular aneurysm embolization, informed consent was obtained. The patient was brought to the angiography suite and placed in supine position. After cardiopulmonary and hemodynamic monitoring was established, general anesthesia was administered by the anesthesiology team. The right wrist was prepped and draped in the usual standard fashion. The right radial artery access site was localized 2 cm proximal to the radial styloid process. The artery was assessed using ultrasound: Right radial artery: Normal and patent. The right radial artery was found to be sufficient for transradial access. A permanent image of the artery was archived. 1% lidocaine was administered for local anesthesia. Vascular access was then obtained in the artery utilizing a standard 4 Fr micropuncture set, under direct ultrasound visualization. A 5 Maltese slender sheath was inserted and connected to heparinized saline flush. A vasodilatory medication infusion consisting of nitroglycerine, verapamil, and heparin was administered intra-arterially through the radial sheath over 2 minutes. The patient's left orbit was also prepped and draped. The neurosurgical team performed a direct cutdown to the inferior ophthalmic vein. A 20-gauge IV tubing was inserted into the IOV and was secured. Next, a Headway 17 microcatheter was inserted into the IOV via the 20-gauge IV tubing. The placement was confirmed via fluoroscopy and a microcatheter contrast injection, which opacified the IOV. Next, further angiography was performed via the arterial diagnostic catheter. A standard diagnostic catheter and wire were then fluoroscopically advanced for selective catheterization of the following vessels: Left common carotid artery, intracranial views. Standard AP, lateral and oblique views. Angiographic imaging was performed at each selected vessel with views as described above. PRE-INTERVENTION FINDINGS: LEFT COMMON CAROTID ARTERY INJECTION (cranial): DSA images of the left anterior intracranial circulation demonstrate normal course and caliber of the petrous, cavernous and supraclinoid segments of the internal carotid artery. There is redemonstration of the patient's indirect carotid cavernous fistula, with noted early opacification of the cavernous sinus and intercavernous sinus via the meningohypophyseal trunk and subsequent drainage into a dilated inferior ophthalmic vein. There is a tortuous and stenotic, but patent connection noted from the IOV to an angular vein, with further drainage via the facial vein into the jugular venous system. The ophthalmic artery origin, course and caliber are normal. There is a small posterior communicating artery without significant contribution to the (more content not included)... Normal [facility] IR CEREBRAL EMBO INTRACRANIA Vikram 07-13-2021 IR CEREBRAL EMBO INTRACRANIAL * * *Final Report* * * DATE OF EXAM: Jul 13 2021 12:12PM ONUR [id number] - IR CEREBRAL EMBO INTRACRANIAL / PROCEDURE REASON: Carotid artery-cavernous sinus fistula * * * * Physician Interpretation * * * * Endovascular Surgical Neuroradiology Report CLINICAL HISTORY: This patient is a 80 years-old Female who presents with indirect carotid cavernous fistula. Patient status-post attempted, but unsuccessful, transvenous embolization. Patient presents today for fistula embolization via direct surgical access into the left inferior ophthalmic vein. PROCEDURE: 1. Direct surgical cutdown and access of the left inferior ophthalmic vein. 2. Ultrasound-guided right radial artery access. 3. IADSA of the left common carotid artery. 4. Coil-embolization of the patient's carotid cavernous fistula. 5. Follow-up cerebral angiography. INFORMED CONSENT: The procedural risks, benefits, alternatives and complications were discussed with the patient and patient's family. All questions were answered and they requested that we proceed. PRE-PROCEDURAL DIAGNOSIS: Indirect Carotid Cavernous Fistula. POST-PROCEDURAL DIAGNOSIS: Same. TIME OUT TIME: 8:51 AM PROCEDURE START TIME: 8:51 AM PROCEDURE END TIME: 11:35 AM ATTENDING: Faheem Mims MD IT FIELD TECHNICIAN (FELLOW): Alejandro Frank MD The procedure was performed by the attending, with an esl instructional assistant. ANESTHESIA: General anesthesia was provided by the anesthesiology team. Pulsed oximetry, cardiopulmonary monitoring and electrocardiography was performed throughout the procedure. Local anesthesia was provided with 1% lidocaine over the right wrist. ANGIOGRAPHY MATERIALS: Diagnostic Catheter: 5 Maltese Galvan 2 Catheter Microcatheter: [employer] Headway 17 Microwire: [place] Synchro2 Soft 0.014 Fluoroscopic Radiation Summary: Plane A, Air Kerma: 749.8 mGy Plane B, Air Kerma: 190.4 mGy Dose Area Product (DAP): 48717.3 mGy*cm2 Fluoro time: 31:30 min:sec Radiation dose exceed 5 Gy: No If radiation dose exceeded 5 Gy, was counseling and instructional brochure provided:N/A Contrast (intra-arterial): 65 ml of OMNIPAQUE 300 TECHNIQUE: After aruna discussion of the risks and benefits of endovascular aneurysm embolization, informed consent was obtained. The patient was brought to the angiography suite and placed in supine position. After cardiopulmonary and hemodynamic monitoring was established, general anesthesia was administered by the anesthesiology team. The right wrist was prepped and draped in the usual standard fashion. The right radial artery access site was localized 2 cm proximal to the radial styloid process. The artery was assessed using ultrasound: Right radial artery: Normal and patent. The right radial artery was found to be sufficient for transradial access. A permanent image of the artery was archived. 1% lidocaine was administered for local anesthesia. Vascular access was then obtained in the artery utilizing a standard 4 Fr micropuncture set, under direct ultrasound visualization. A 5 Maltese slender sheath was inserted and connected to heparinized saline flush. A vasodilatory medication infusion consisting of nitroglycerine, verapamil, and heparin was administered intra-arterially through the radial sheath over 2 minutes. The patient's left orbit was also prepped and draped. The neurosurgical team performed a direct cutdown to the inferior ophthalmic vein. A 20-gauge IV tubing was inserted into the IOV and was secured. Next, a Headway 17 microcatheter was inserted into the IOV via the 20-gauge IV tubing. The placement was confirmed via fluoroscopy and a microcatheter contrast injection, which opacified the IOV. Next, further angiography was performed via the arterial diagnostic catheter. A standard diagnostic catheter and wire were then fluoroscopically advanced for selective catheterization of the following vessels: Left common carotid artery, intracranial views. Standard AP, lateral and oblique views. Angiographic imaging was performed at each selected vessel with views as described above. PRE-INTERVENTION FINDINGS: LEFT COMMON CAROTID ARTERY INJECTION (cranial): DSA images of the left anterior intracranial circulation demonstrate normal course and caliber of the petrous, cavernous and supraclinoid segments of the internal carotid artery. There is redemonstration of the patient's indirect carotid cavernous fistula, with noted early opacification of the cavernous sinus and intercavernous sinus via the meningohypophyseal trunk and subsequent drainage into a dilated inferior ophthalmic vein. There is a tortuous and stenotic, but patent connection noted from the IOV to an angular vein, with further drainage via the facial vein into the jugular venous system. The ophthalmic artery origin, course and caliber are normal. There is a small posterior communicating artery without significant contr (more content not included)... [facility] OPERATIVE NOon 07-13-2021 OPERATIVE NO HNO ID: [id number] Author: Paige Hammonds MD Service: Neurosurgery Author Type: Physician Type: Operative Report Filed: 07/20/2021 4:05 PM Note Text: OPERATIVE/PROCEDURE REPORT LOG ID: [id number] SURGERY/PROCEDURE DATE: 07/13/2021 INCISION/PROCEDURE START TIME: 8:51 AM INCISION CLOSE/PROCEDURE END TIME: 11:35 AM SURGEON(S)/PROCEDURALIS T(S) AND IT FIELD TECHNICIAN(S): Surgeon(s) and Role: Panel 1: * Faheem Mims MD - Primary * Alejandro Frank MD - Fellow Panel 2: * Paige Hammonds MD - Primary * Kaley Sorenson MD - Resident - Assisting No Additional Staff SURGERY/PROCEDURE(S): Infraorbital approach for left inferior orbital vein cut down for indirect CCF embolization and subsequent vein ligation ANESTHESIA: General SURGERY/PROCEDURE DETAILS: The patient was brought to the operating room and an operative huddle, including the patient and team members from neurosurgery, anesthesiology, and nursing, was performed to confirm the patient's identity and procedure to be performed. The patient was then induced with general anesthesia and intubated. The appropriate lines were placed by the anesthesiology team. Corneal protector was used. The patient was positioned supine in the angio suite. US was used to identify location and direction of vein below the orbit. Patient was prepped and draped in the usual fashion, and an audible timout was performed. Avril-op antibiotics were administered prior to incision. 15 blade was used to perform infraorbital incision. Hemostasis was achieved with bipolar cautery. The subcutaneous tissue was dissected using metzenbaum scissors and bipolar cautery until the vein became readily visible. Once the vein was freed from surrounding structures, two silk ties were use to serve as vessel loops. A needle was then used to puncture the wall of the vein and a microwire was directly inserted into the inferior orbital vein in intracranial direction. The microcatheter was then introduced over the wire and threaded intra-cranially as well. The silk ties were cinched around the catheter to prevent venous bleeding. At this point, the endovascular team performed the intervention and will be dictated separately. Once embolization was achieved, the microcatheter was removed and the silk ties cinched completely closed. The vein was bipolared and cut to ensure full ligation. The surgical site was irrigated, and satisfactory hemostasis was achieved. The incision was closed using 6-0 interrupted vertical mattress stitches and bacitracin was applied. The patent was gradually awakened from anesthesia and extubated at the end of the case. PRE-OP/PRE-PROCEDURE DIAGNOSIS: Indirect CC fistula POST-OP/POST-PROCEDURE DIAGNOSIS: Same as Preop ESTIMATED BLOOD LOSS: 10 mls SPECIMENS: None IMPLANTABLE DEVICES: yes Implant Name Type Inv. Item Serial No. Negative Cleaner Lot No. LRB No. Used Action SYSTEM AXIUM MICROFX LATTICEFX 6MM .0125IN HELIX PGLA 20CM EMBOLIZATION - [id number] Implant SYSTEM AXIUM MICROFX LATTICEFX 6MM .0125IN HELIX PGLA 20CM EMBOLIZATION [employer] [id number] Left 1 Implanted SYSTEM AXIUM MICROFX LATTICEFX 5MM .0125IN 3D PGLA 15CM EMBOLIZATION - [id number] Implant SYSTEM AXIUM MICROFX LATTICEFX 5MM .0125IN 3D PGLA 15CM EMBOLIZATION [employer] [id number] Left 1 Implanted SYSTEM AXIUM MICROFX LATTICEFX 5MM .0125IN HELIX PGLA 15CM EMBOLIZATION - [id number] Implant SYSTEM AXIUM MICROFX LATTICEFX 5MM .0125IN HELIX PGLA 15CM EMBOLIZATION [employer] [id number] Left 1 Implanted SYSTEM AXIUM MICROFX LATTICEFX 5MM .0125IN HELIX PGLA 15CM EMBOLIZATION - [id number] Implant SYSTEM AXIUM MICROFX LATTICEFX 5MM .0125IN HELIX PGLA 15CM EMBOLIZATION [employer] [id number] Left 1 Implanted SYSTEM AXIUM MICROFX LATTICEFX 5MM .0125IN HELIX PGLA 15CM EMBOLIZATION - [id number] Implant SYSTEM AXIUM MICROFX LATTICEFX 5MM .0125IN HELIX PGLA 15CM EMBOLIZATION [employer] [id number] Left 1 Implanted SYSTEM AXIUM MICROFX LATTICEFX 6MM .0125IN HELIX PGLA 20CM EMBOLIZATION - [id number] Implant SYSTEM AXIUM MICROFX LATTICEFX 6MM .0125IN HELIX PGLA 20CM EMBOLIZATION [employer] [id number] Left 1 Implanted SYSTEM AXIUM MICROFX LATTICEFX 5MM .0125IN HELIX PGLA 20CM EMBOLIZATION - [id number] Implant SYSTEM AXIUM MICROFX LATTICEFX 5MM .0125IN HELIX PGLA 20CM EMBOLIZATION [employer] [id number] Left 1 Implanted SYSTEM AXIUM MICROFX LATTICEFX 5MM .0125IN HELIX PGLA 20CM EMBOLIZATION - [id number] Implant SYSTEM AXIUM MICROFX LATTICEFX 5MM .0125IN HELIX PGLA 20CM EMBOLIZATION [employer] [id number] Left 1 Implanted SYSTEM AXIUM MICROFX LATTICEFX 6MM .0125IN HELIX PGLA 20CM EMBOLIZATION - [id number] Implant SYSTEM AXIUM MICROFX LATTICEFX 6MM .0125IN HELIX PGLA 20CM EMBOLIZATION [employer] [id number] Left 1 Implanted SYSTEM AXIUM MICROFX LATTICEFX 6MM .0125IN HELIX PGLA 20CM EMBOLIZATION - [id number] Implant SYSTE (more content not included)... [facility] PT EDon 07-13-2021 PT ED HNO ID: [id number] Author: Rosi Nava RN Service: Nursing Author Type: Registered Nurse Type: Patient Education Filed: 07/13/2021 8:20 AM Note Text: AMBULATORY PATIENT EDUCATION TOPIC: Survival Skills: Post Procedure Instructions READINESS TO LEARN COGNITIVE ABILITY: Alert and oriented MOTIVATION TO LEARN: Interested FAMILY SUPPORT: None - Unavailable/disinterest ed INSTRUCTION PROVIDED TO: Patient PATIENT LEARNS BEST BY: Individual Instruction FACTORS AFFECTING LEARNING: None PHYSICAL LIMITATIONS AFFECTING LEARNING: None LEARNING RESPONSE DIAGNOSIS: CC Fistula METHOD OF INSTRUCTION: Individual instruction PATIENT / FAMILY RESPONSE: Verbalizes understanding of: POST-PROCEDURE INSTRUCTIONS-Correct actions to take to reduce post procedure complications FOLLOW-UP PLAN: Follow-up with Primary Care SUPPLEMENTAL MATERIAL: None REFERRAL (RECOMMENDATION): None Electronically Signed By: Rosi Nava RN In Department: HOSP MAIN H060 [facility] ANES PRE-OPon 07-12-2021 ANES PRE-OP HNO ID: [id number] Author: Satish Dela Cruz MD Service: ? Author Type: Physician Type: Anesthesia Preprocedure Evaluation Filed: 07/12/2021 10:51 AM Note Text: ANESTHESIOLOGY DAY OF SURGERY NOTE : 1940 Procedure Information Date/Time: 07/12/21 1051 Procedure: SELECTIVE CATH PLACEMENT COMMON CAROTID OR INNOMINATE ARTERY BILATERAL W/ ANGIOGRAPHY OF THE IPSILATERAL EXTRACRANIAL CAROTID CIRCULATION AND ALL ASSOCIATED W/ ANGIOGRAPHY OF THE CERVICOCEREBRAL ARCH (N/A Groin) [facility] Surgeons: Faheem Mims MD There is no height or weight on file to calculate BMI. Most recent hematocrit and potassium results: Hematocrit 35.9 07/11/2021 Potassium 4.3 07/11/2021 Relevant Problems CARDIO (+) Carotid-cavernous fistula I - PHYSICAL EVALUATION AIRWAY Patient intubated: No. Tracheostomy tube not present Mallampati: II. TM distance: >3 FB. Neck ROM: limited flexion and extension. Mouth opening: adequate. Short neck: no. Thick neck: no DENTAL Dentures, upper: partial. II - ANESTHESIA PLAN ASA Score: 3 Anesthetic Plan: general NPO Status: adequate Monitoring plan: invasive hemodynamic monitoring. Monitoring method: arterial Line Postoperative analgesic plan: multimodal analgesia. Informed Consent Anesthetic risks, benefits, alternatives, personnel and consent discussed: yes. Patient / Responsible Democrat agrees to proceed: yes Patient / Surrogate agrees to blood products: Yes Vitals Value Taken Time BP 189/90 07/12/21 1040 Pulse 79 07/12/21 1045 Resp 16 07/12/21 0915 Temp 36.6 ?C (97.9 ?F) 07/12/21 0915 SpO2 97 % 07/12/21 1045 Vitals shown include unvalidated device data. Facility-Administered Medications as of 07/12/2021 Medication Dose Route Frequency - [] iv contrast (radiology procedure) INTRAVENOUS DIRECTED PRN - ondansetron (PF) 4 mg injection (ZOFRAN) 4 mg INTRAVENOUS q 6 H PRN - senna-docusate 8.6-50 mg 1 tablet (SENNA-S) 1 tablet ORAL/FEEDING TUBE BID - NaCl 0.9% iv flush bag 20 mL INTRAVENOUS PRN - sodium chloride 0.9 % (flush) 3-5 mL (BD POSIFLUSH) 3-5 mL INTRAVENOUS q 12 H - NaCl 0.9% iv infusion 75 mL/hr INTRAVENOUS CONTINUOUS - acetaminophen 650 mg tab(s) (TYLENOL) 650 mg ORAL/FEEDING TUBE q 4 H PRN - oxyCODONE IR 5-10 mg tab(s) (ROXICODONE) 5-10 mg ORAL/FEEDING TUBE q 4 H PRN - [COMPLETED] fentaNYL 50 mcg/mL injection (SUBLIMAZE) INTRAVENOUS PRN - [COMPLETED] midazolam (PF) injection (VERSED) INTRAVENOUS PRN - [COMPLETED] nitroglycerin iv vial 100mcg/mL PRN - [COMPLETED] verapamil injection PRN - [COMPLETED] heparin 1,000 unit/mL injection PRN - [COMPLETED] NaCl 0.9% iv infusion INTRAVENOUS X (ONE-STEP ONLY) CONTINUOUS PRN - [COMPLETED] lidocaine 2 % (XYLOCAINE) TOPICAL PRN No current outpatient medications on file as of 07/12/2021. I have interviewed and examined the patient. I have reviewed the medical record and/or the pre-anesthesia evaluation, pertinent labs, and test results. This contains updated information obtained within 48 hours of Surgery/Procedure. SIGNATURE: Satish Dela Cruz MD PATIENT NAME: Alberto Bianchi DATE: July 12, 2021 TIME: 10:51 AM CSN: [id number] [facility] BRIEF OP NOTon 07-12-2021 BRIEF OP NOT HNO ID: [id number] Author: Faheem Mims MD Service: Radiology Author Type: Physician Type: Brief Op Note Filed: 07/12/2021 4:58 PM Note Text: BRIEF OP/PROCEDURE NOTE NEURO INTERVENTIONAL PROCEDURE DATE: July 12, 2021 LOG ID: [id number] Surgery/Procedure Date: 07/12/2021 Incision/Procedure Start Time: 11:22 AM Incision Close/Procedure End Time: 4:10 PM Anesthesia: General PRIMARY PROCEDURALIST: Faheem Mims M.D. IT FIELD TECHNICIAN(S): Alejandro Vasquez MD PROCEDURE: Diagnostic CervicoCerebral Angiography Intracranial Embolization AVM Access Site: right radial (arterial), right femoral (venous) PRE-PROCEDURE DIAGNOSIS: CCF POST-PROCEDURE DIAGNOSIS: same FINDINGS: 1. Unsuccessful attempt to embolize left indirect carotid-cavernous fistula via left IPSS and left facial vein routes 2. Direct infraorbital cutdown will be attempted tomorrow ESTIMATED BLOOD LOSS: Scant COMPLICATIONS: None IMPLANTS: * No implants in log * RADIATION DOSE: Exceeded 5 Gy - Yes, Counseling and Instructional Booklet Provided SPECIMENS: Not Applicable SIGNATURE: Faheem Mims MD PATIENT NAME: Alberto Bianchi DATE: July 12, 2021 TIME: 4:55 PM [facility] CASE MGT INIT Sara 2021 CASE MGT INIT KRIS HNO ID: [id number] Author: ANDREA Lyons Service: ? Author Type: Chucking And Boring Machine Operator Type: Care Mgt Initial Assessment Filed: 07/12/2021 2:40 PM Note Text: CARE MANAGEMENT: ASSESSMENT AND DISCHARGE PLAN SERVICE DATE: July 12, 2021 SERVICE TIME: 1:45 PM PRIMARY CARE PHYSICIAN: No primary care provider on file. Phone: None ADMISSION STATUS: Inpatient NEEDS PRIOR TO DISCHARGE Needs Prior to Discharge: Procedure;To Be Determined Procedure Needed: endovascular treatment POTENTIAL TRANSITION PLANS Based on clinical judgement, Care Management will address the following needs: No transitional/discharge planning needs at this time ADVANCE DIRECTIVES Current Advance Directive: None Other Spatial Scientist Attempted to Assist with AD Completion: No Unable to Assist Due To:: Other: See Comment (Patient in the OR ) MS/BEHAVIOR Baseline Mental Status Prior to this Illness what was the patient's Baseline Mental Status?: Unable to complete assessment Prior to this illness, has anyone described the patient having any of the following behaviors?: Not Applicable Relationship of the informant to the patient:: Son Name of Informant: : Lyndsay Bianchi [phone] HEALTH LITERACY READMISSION Last Discharge Date: N/A Is this Within the Past 30 days? 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 Stated Goals: To have reduction in symptoms;To improve my functional status;To return home to life as it was;To be cured/healed Payor gaps or opportunities/considera tions/situation: Un/Under-insured Under the care of a PCP?: No Does the patient have transportation upon discharge?: Yes Situation: Patient's family are able to transport her oe upon D/C Use of any community resources?: No Does the patient have a stable and supportive living arrangement and home setting?: Yes Situation: Patient came to the hospital from home where she lives with her spouse Are there any potential risks or gaps identified by risk/functional/fall,et c. scores in the EMR?: No Any potential risks related to substance abuse and/or behavioral health?: No Based on clinical judgement, Care Management will address the following needs: No transitional/discharge planning needs at this time CAREGIVER ASSESSMENT MEDICAL No medical discharge barriers identified at this time. SOCIAL Primary Contact: Extended Emergency Contact Information Primary Emergency Contact: LYNDSAY BIANCHI Mobile Relation: Son Secondary Emergency Contact: TASH (Zemntezl-lg-izl) Mobile Relation: Relative Preferred language: YI Director Hr Communications needed? No No social discharge barriers identified at this time. Patient's perception of need for this admission: Pt is aware of admission and is in agreement BEHAVIOR/COGNITIVE Psychosocial Needs: No behavioral/cognitive discharge barriers identified at this time. FUNCTIONAL No functional discharge barriers identified at this time. FREEDOM OF CHOICE EXPLAINED: [place] of Choice Given: No Reason Not Given: No placements necessary Are you interested in bedside delivery of your medications? No ASSESSMENT AND PLAN: Pt is a 80 Y/F who presented to the hospital on 07/10/2021 with worsening double vision on looking to the right with concern for CCF. KULDEEP ARANA unable to speak with Pt at this time to complete initial assessment due to Pt being in the OR. KULDEEP ARANA contacted Pt's son Lyndsay Bianchi ([phone]) via phone to complete initial assessment. Per Pt's son, Pt came to the hospital form home where she lives with her spouse Joe Bianchi ([phone]) and was independent with ADL's prior to admission. Per AM team sign out, Anticipated Pt will be D/C ready tomorrow (07/13/2021). Plan for Pt to go to the OR today (07/12/2021) for endovascular treatment. Anticipated Pt will be able to be D/C back to home with no skilled needs vs. outpatient therapy once medically ready for D/C. Plan for Pt to be transported home via family auto. YASMEEN will follow up if needed. 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 Patient presents today for elective endovascular treatment. PROCEDURE: 1. Ultrasound-guided right radial artery access. 2. Ultrasound-guided right femoral vein access. 3. IADSA of the left common carotid artery. 4. Attempted transvenous embolization of the indirect carotid cavernous fistula. 5. Follow-up cerebral angiography. INFORMED CONSENT: The procedural risks, benefits, alternatives and complications were discussed with the patient and patient's family. All questions were answered and they requested that we proceed. PRE-PROCEDURAL DIAGNOSIS: Indirect Carotid Cavernous Fistula. POST-PROCEDURAL DIAGNOSIS: Same. TIME OUT TIME: 11:22 AM PROCEDURE START TIME: 11:22 AM PROCEDURE END TIME: 4:18 PM ATTENDING: Faheem Mims MD IT FIELD TECHNICIAN (FELLOW): Alejandro Frank MD The procedure was performed by the attending, with an esl instructional assistant. ANESTHESIA: General anesthesia was provided by the anesthesiology team. Pulsed oximetry, cardiopulmonary monitoring and electrocardiography was performed throughout the procedure. Local anesthesia was provided with 1% lidocaine over the right wrist. ANGIOGRAPHY MATERIALS: Diagnostic Catheter: 5 Maltese Galvan 2 Catheter Guidewire: 0.035 inch angled tapered Glidewire. Guide Catheter: 5 Fr Vertebral Catheter; 6 Fr Compass Sheath Intermediate Catheter: Expreemtronic Phenom Plus 0.055 Microcatheter: Microvention Headway Duo 0.0165 Microwire: Tere Synchro2 Select 0.014; [place] TranSend 0.014; Benge Scientific Mailman 0.014 Fluoroscopic Radiation Summary: Plane A, Air Kerma: 3072.0 mGy Plane B, Air Kerma: 2289.0 mGy Dose Area Product (DAP): 700895.0 mGy*cm2 Fluoro time: 329:18 min:sec Radiation dose exceed 5 Gy: No If radiation dose exceeded 5 Gy, was counseling and instructional brochure provided:N/A Contrast (intra-arterial): 215 ml of OMNIPAQUE 240 TECHNIQUE: After aruna discussion of the risks and benefits of endovascular aneurysm embolization, informed consent was obtained. The patient was brought to the angiography suite and placed in supine position. After cardiopulmonary and hemodynamic monitoring was established, general anesthesia was administered by the anesthesiology team. The right wrist and forearm were prepped and draped in the usual standard fashion. The right radial artery access site was localized 2 cm proximal to the radial styloid process. The artery was assessed using ultrasound: Right radial artery: Normal and patent. The right radial artery was found to be sufficient for transradial access. A permanent image of the artery was archived. 1% lidocaine was administered for local anesthesia. Vascular access was then obtained in the artery utilizing a standard 4 Fr micropuncture set, under direct ultrasound visualization. A 5 Maltese slender sheath was inserted and connected to heparinized saline flush. A vasodilatory medication infusion consisting of nitroglycerine, verapamil, and heparin was administered intra-arterially through the radial sheath over 2 minutes. The right groin was prepped and draped in the usual standard fashion. After fluoroscopic localization of the right femoral head, the vein was visualized with ultrasound. Right common femoral vein: normal and patent. The right femoral vein was found to be sufficient for transfemoral access. A permanent image of the artery was archived. 1% lidocaine was administered for local anesthesia. Vascular access was then obtained in the artery utilizing a standard 4 Fr micropuncture set, under direct ultrasound visualization. A 5 Fr sheath was inserted and connected to heparinized saline flush. A standard diagnostic catheter and wire were then fluoroscopically advanced for selective catheterization of the following vessels: Left common carotid artery, intracranial views. Standard AP, lateral and oblique views. Angiographic imaging was performed at each selected vessel with views as described above. PRE-INTERVENTION FINDINGS: LEFT COMMON CAROTID ARTERY INJECTION (cranial): DSA images of the left anterior intracranial circulation demonstrate normal course and caliber of the petrous, cavernous and supraclinoid segments of the internal carotid artery. There is redemonstration of the patient's indirect carotid cavernous fistula, with noted early opacification of the cavernous sinus via the meningohypophyseal trunk and subsequent drainage into a dilated inferior ophthalmic vein. There is a tortuous and stenotic, but patent connection noted from the IOV to an angular vein, with further drainage via the facial v (more content not included)... [facility] PT EDon 07-12-2021 PT ED HNO ID: [id number] Author: Rosi Nava RN Service: Nursing Author Type: Registered Nurse Type: Patient Education Filed: 07/12/2021 12:33 PM Note Text: AMBULATORY PATIENT EDUCATION TOPIC: Survival Skills: Post Procedure Instructions READINESS TO LEARN COGNITIVE ABILITY: Alert and oriented MOTIVATION TO LEARN: Eager FAMILY SUPPORT: None - Unavailable/disinterest ed INSTRUCTION PROVIDED TO: Patient PATIENT LEARNS BEST BY: Individual Instruction FACTORS AFFECTING LEARNING: None PHYSICAL LIMITATIONS AFFECTING LEARNING: None LEARNING RESPONSE DIAGNOSIS: CC Fistula METHOD OF INSTRUCTION: Individual instruction PATIENT / FAMILY RESPONSE: Verbalizes understanding of: POST-PROCEDURE INSTRUCTIONS-Correct actions to take to reduce post procedure complications FOLLOW-UP PLAN: Follow-up with Primary Care SUPPLEMENTAL MATERIAL: None REFERRAL (RECOMMENDATION): None Electronically Signed By: Rosi Nava RN In Department: [facility] MAIN 60 [facility] BRIEF OP NOTon 07-11-2021 BRIEF OP NOT HNO ID: [id number] Author: Faheem Mims MD Service: Radiology Author Type: Physician Type: Brief Op Note Filed: 07/11/2021 1:44 PM Note Text: BRIEF OP/PROCEDURE NOTE NEURO INTERVENTIONAL PROCEDURE DATE: July 11, 2021 LOG ID: [id number] Surgery/Procedure Date: 07/11/2021 Incision/Procedure Start Time: 11:35 AM Incision Close/Procedure End Time: 12:35 PM Anesthesia: Procedural Sedation PRIMARY PROCEDURALIST: Faheem Mims M.D. IT FIELD TECHNICIAN(S): Vladimir Guerrero MD PROCEDURE: Diagnostic CervicoCerebral Angiography Access Site: right radial PRE-PROCEDURE DIAGNOSIS: CCF POST-PROCEDURE DIAGNOSIS: same FINDINGS: 1. 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 Venous filling of the intercavernous sinus, left posterior cavernous sinus, left IOV and left facial vein are demonstrated. Bilateral inferior petrosal sinuses are not visualized, possibly occluded 2. Severe proximal cervical large vessel tortuosity, limiting catheterization ESTIMATED BLOOD LOSS: Scant COMPLICATIONS: None IMPLANTS: * No implants in log * RADIATION DOSE: Exceeded 5 Gy - No SPECIMENS: Not Applicable SIGNATURE: Faheem Mims MD PATIENT NAME: Alberto Bianchi DATE: July 11, 2021 TIME: 12:39 PM Normal [facility] Basic metabolic 2000 panelon 07-11-2021 Anion gap [Moles/Vol] 10 mmol/L Normal 9-18 [facility] Comment on above: Order Comment: Speci men Type: BLOOD SPECIMENOrdering Facility: [facility] Address: [address] [place] [address] Performed By: #### 1 9123-9, 07369-5 ####[facility] LABCLIA [id number] [place] [address] [place] Calcium [Mass/Vol] 9.5 mg/dL Normal 8.5-10.2 [facility] Comment on above: Order Comment: Speci men Type: BLOOD SPECIMENOrdering Facility: [facility] Address: [address] [place] [address] Performed By: #### 1 9123-9, 75446-4 ####[facility] LABCLIA [id number] [place] [address] [place] Chloride [Moles/Vol] 107 mmol/L High 97-105 [facility] Comment on above: Order Comment: Speci men Type: BLOOD SPECIMENOrdering Facility: [facility] Address: [address] [place], [place] [id number] Performed By: #### 1 91239, 78155-2 ####[facility] LABCLIA [id number] [place] [address] [place] CO2 [Moles/Vol] 25 mmol/L Normal 22-30 [facility] Comment on above: Order Comment: Speci men Type: BLOOD SPECIMENOrdering Facility: [facility] Address: [address] [place] [address] Performed By: #### 1 9123-9, 59580-4 ####[facility] LABCLIA [id number] [address] STATES OF [facility] Creatinine [Mass/Vol] 0.89 mg/dL Normal 0.58-0.96 [facility] Comment on above: Order Comment: Stephenie schwartz Type: BLOOD SPECIMENOrdering Facility: [facility] Address: [address] [place] [address] Performed By: #### 1 9123-9, 64080-6 ####[facility] LABIA [id number] [address] OF [facility] ESTIMATED GLOMERULAR FILTRATION RATE 66 mL/min/1.73m??? Normal >=60 [facility] Comment on above: Order Comment: Stephenie schwartz Type: BLOOD SPECIMENOrdering Facility: [facility] Address: [address] [place] [address] Result Comment: Ramya mated Glomerular Filtration Rate (eGFR) is calculated using the 2020 CKD-EPI creatinine equation. This equation utilizes serum creatinine, sex, and age as parameters. The creatinine assay has traceable calibration to isotope dilution-mass spectrometry. Refer to KDIGO guidelines for clinical interpretation. In patients with unstable renal function, e.g. those with acute kidney injury, the eGFR may not accurately reflect actual GFR. Performed By: #### 1 9123-9, 77994-7 ####[facility] LABIA [id number] [address] [place] Glucose [Mass/Vol] 112 mg/dL High 74-99 [facility] Comment on above: Order Comment: Stephenie schwartz Type: BLOOD SPECIMENOrdering Facility: [facility] Address: [address] [place] [address] Result Comment: The [place] [employer] (ADA) provides guidance for cutoff values for fasting glucose and random glucose. The ADA defines fasting as no caloric intake for at least 8 hours. Fasting plasma glucose results between 100 to 125 mg/dL indicate increased risk for diabetes (prediabetes). Fasting plasma glucose results greater than or equal to 126 mg/dL meet the criteria for diagnosis of diabetes. In the absence of unequivocal hyperglycemia, results should be confirmed by repeat testing. In a patient with classic symptoms of hyperglycemia or hyperglycemic crisis, random plasma glucose results greater than or equal to 200 mg/dL meet the criteria for diagnosis of diabetes. Reference: Standards of Medical Care in Diabetes 2016, [place] [employer] Association. Diabetes Care. 2016.39(Suppl 1). Performed By: #### 1 9123-9, 64423-3 ####[facility] LABCLIA [id number] [place] [address] [place] Potassium [Moles/Vol] 4.3 mmol/L Normal 3.7-5.1 [facility] Comment on above: Order Comment: Speci men Type: BLOOD SPECIMENOrdering Facility: [facility] Address: [address] [place] [address] Performed By: #### 1 9123, 10870-4 ####[facility] LABCLIA [id number] [place] [address] [place] Sodium [Moles/Vol] 142 mmol/L Normal 136-144 [facility] Comment on above: Order Comment: Speci men Type: BLOOD SPECIMENOrdering Facility: [facility] Address: [address] [place] [address] Performed By: #### 1 91, ####[facility] LABCLIA [id number] [place] [address] [place] Urea nitrogen [Mass/Vol] 17 mg/dL Normal 7-21 [facility] Comment on above: Order Comment: Speci men Type: BLOOD SPECIMENOrdering Facility: [facility] Address: [address] [place], [place] [id number] Performed By: #### 1 9123, 51964-8 ####[facility] LABCLIA [id number] [place] [address] [place] CARDIOLIPIN IGG ABSon 2021 Cardiolipin IgG IA Qn (S) 16.3 GPL High <15.0 [facility] Comment on above: Order Comment: Speci men Type: BLOOD SPECIMENOrdering Facility: [facility] Address: [address] [place] [address] Result Comment: <15 GPL Negative 15-20 GPL Indeterminate >20 GPL Positive The following results were obtained with the [employer] QUANTA Lite SEDRICK IgG III TRIPP. Cardiolipin IgG values obtained with the different manufacturers' assay methods may not be used interchangeably. The magnitude of the reported IgG levels cannot be correlated to an endpoint titer. Performed By: #### Tommy WANG, 5076-5, CAROLYN ####[facility] LABCLIA [id number] [address] OF [facility] CARDIOLIPIN IGM ABSon 2021 Cardiolipin IgM IA Qn (S) 45.1 MPL High <12.5 [facility] Comment on above: Order Comment: Speci men Type: BLOOD SPECIMENOrdering Facility: [facility] Address: [address] [place] [address] Result Comment: <12. 5 MPL Negative 12.5-20 MPL Indeterminate >20 MPL Positive The following results were obtained with the [employer] QUANTA Lite SEDRICK IgM III TRIPP. Cardiolipin IgM values obtained with the different manufacturers' assay methods may not be used interchangeably. The magnitude of the reported IgM levels cannot be correlated to an endpoint titer. ??? Performed By: #### Tommy WANG, 5076-5, CAROLYN ####[facility] LABIA [id number] [address] [place] CBC W Auto Differential pane l (Bld)on 07-11-2021 Basophils (Bld) [#/Vol] 0.05 10*3/uL Normal <0.11 [facility] Comment on above: Order Comment: Speci men Type: BLOOD SPECIMENOrdering Facility: [facility] Address: [address] [place] [address] Performed By: #### 5 7021-8 ####[facility] LABIA [id number] [place] Basophils/100 WBC (Bld) 0.7 % Normal [facility] Comment on above: Order Comment: Speci men Type: BLOOD SPECIMENOrdering Facility: [facility] Address: [address] [place], [place] [id number] Performed By: #### 5 7021-8 ####[facility] LABCLIA [id number] [place] [address] [place] Differential cell count method Nom (Bld) Auto Normal [facility] Comment on above: Order Comment: Speci men Type: BLOOD SPECIMENOrdering Facility: [facility] Address: [address] [place], [place] [id number] Performed By: #### 5 7021-8 ####[facility] LABCLIA [id number] [place] [address] [place] Eosinophils (Bld) [#/Vol] 0.17 10*3/uL Normal <0.46 [facility] Comment on above: Order Comment: Speci men Type: BLOOD SPECIMENOrdering Facility: [facility] Address: [address] [place], [place] [id number] Performed By: #### 5 7021-8 ####[facility] LABCLIA [id number] [address] [place] Eosinophils/100 WBC (Bld) 2.4 % Normal [facility] Comment on above: Order Comment: Speci men Type: BLOOD SPECIMENOrdering Facility: [facility] Address: [address] [place] [address] Performed By: #### 5 7021-8 ####[facility] LABCLIA [id number] [place] [address] [place] Erythrocyte distribution width (RBC) [Ratio] 13.9 % Normal 11.5-15.0 [facility] Comment on above: Order Comment: Speci men Type: BLOOD SPECIMENOrdering Facility: [facility] Address: [address] [place], [place] [id number] Performed By: #### 5 7021-8 ####[facility] LABIA [id number] [address] Hematocrit (Bld) [Volume fraction] 35.9 % Low 36.0-46.0 [facility] Comment on above: Order Comment: Speci men Type: BLOOD SPECIMENOrdering Facility: [facility] Address: [address] [place], [place] [id number] Performed By: #### 5 7021-8 ####[facility] LABIA [id number] [address] Hemoglobin (Bld) [Mass/Vol] 11.6 g/dL Normal 11.5-15.5 [facility] Comment on above: Order Comment: Speci men Type: BLOOD SPECIMENOrdering Facility: [facility] Address: [address] [place], [place] [id number] Performed By: #### 5 7021-8 ####[facility] LABIA [id number] [address] IMMATURE GRAN % 0.1 % Normal [facility] Comment on above: Order Comment: Speci men Type: BLOOD SPECIMENOrdering Facility: [facility] Address: [address] [place], [place] [id number] Performed By: #### 5 7021-8 ####[facility] LABIA [id number] [address] [place] OF [facility] IMMATURE GRAN ABS <0.03 Normal <0.10 [facility] Comment on above: Order Comment: Speci men Type: BLOOD SPECIMENOrdering Facility: [facility] Address: [address] [place], [place] [id number] Performed By: #### 5 7021-8 ####[facility] LABIA [id number] [address] [place] Lymphocytes (Bld) [#/Vol] 1.91 10*3/uL Normal 1.00-4.00 [facility] Comment on above: Order Comment: Speci men Type: BLOOD SPECIMENOrdering Facility: [facility] Address: [address] [place] [address] Performed By: #### 5 7021-8 ####[facility] LABCLIA [id number] [address] [place] OF [facility] Lymphocytes/100 WBC (Bld) 26.8 % Normal [facility] Comment on above: Order Comment: Speci men Type: BLOOD SPECIMENOrdering Facility: [facility] Address: [address] [place] [address] Performed By: #### 5 7021-8 ####[facility] LABIA [id number] [address] [place] MCH (RBC) [Entitic mass] 30.4 pg Normal 26.0-34.0 [facility] Comment on above: Order Comment: Speci men Type: BLOOD SPECIMENOrdering Facility: [facility] Address: [address] [place], [place] [id number] Performed By: #### 5 7021-8 ####[facility] LABIA [id number] [address] [place] MCHC (RBC) [Mass/Vol] 32.3 g/dL Normal 30.5-36.0 [facility] Comment on above: Order Comment: Speci men Type: BLOOD SPECIMENOrdering Facility: [facility] Address: [address] [place], [place] [id number] Performed By: #### 5 7021-8 ####[facility] LABCLIA [id number] [address] [place] MCV (RBC) [Entitic vol] 94.2 fL Normal 80.0-100.0 [facility] Comment on above: Order Comment: Speci men Type: BLOOD SPECIMENOrdering Facility: [facility] Address: [address] [place], [place] [id number] Performed By: #### 5 7021-8 ####[facility] LABCLIA [id number] [place] [address] [place] Monocytes (Bld) [#/Vol] 0.56 10*3/uL Normal <0.87 [facility] Comment on above: Order Comment: Speci men Type: BLOOD SPECIMENOrdering Facility: [facility] Address: [address] [place], [place] [id number] Performed By: #### 5 7021-8 ####[facility] LABCLIA [id number] [place] [address] [place] Monocytes/100 WBC (Bld) 7.9 % Normal [facility] Comment on above: Order Comment: Speci men Type: BLOOD SPECIMENOrdering Facility: [facility] Address: [address] [place], [place] [id number] Performed By: #### 5 7021-8 ####[facility] LABCLIA [id number] [place] [address] [place] Neutrophils (Bld) [#/Vol] 4.43 10*3/uL Normal 1.45-7.50 [facility] Comment on above: Order Comment: Speci men Type: BLOOD SPECIMENOrdering Facility: [facility] Address: [address] [place] [address] Performed By: #### 5 7021-8 ####[facility] LABCLIA [id number] [place] [address] [place] Neutrophils/100 WBC (Bld) 62.1 % Normal [facility] Comment on above: Order Comment: Speci men Type: BLOOD SPECIMENOrdering Facility: [facility] Address: [address] [place], [place] [id number] Performed By: #### 5 7021-8 ####[facility] LABCLIA [id number] [place] [address] [place] Nucleated RBC (Bld) [#/Vol] 10*3/uL Normal <0.01 [facility] Comment on above: Order Comment: Speci men Type: BLOOD SPECIMENOrdering Facility: [facility] Address: [address] [place] [address] Performed By: #### 5 7021-8 ####[facility] LABIA [id number] [place] [address] [place] Nucleated RBC/100 WBC (Bld) [Ratio] 0.0 /100 WBC Normal [facility] Comment on above: Order Comment: Speci men Type: BLOOD SPECIMENOrdering Facility: [facility] Address: [address] [place] [address] Performed By: #### 5 7021-8 ####[facility] [id number] [place] [address] [place] Platelet mean volume (Bld) [Entitic vol] 9.5 fL Normal 9.0-12.7 [facility] Comment on above: Order Comment: Speci men Type: BLOOD SPECIMENOrdering Facility: [facility] Address: [address] [place], [place] [id number] Performed By: #### 5 7021-8 ####[facility] LABIA [id number] [place] [address] [place] Platelets (Bld) [#/Vol] 177 10*3/uL Normal 150-400 [facility] Comment on above: Order Comment: Speci men Type: BLOOD SPECIMENOrdering Facility: [facility] Address: [address] [place], [place] [id number] Performed By: #### 5 7021-8 ####[facility] LABIA [id number] [place] [address] [place] RBC (Bld) [#/Vol] 3.81 10*6/uL Low 3.90-5.20 [facility] Comment on above: Order Comment: Speci men Type: BLOOD SPECIMENOrdering Facility: [facility] Address: [address] [place] [address] Performed By: #### 5 7021-8 ####[facility] LABCLIA [id number] [place] [address] [place] WBC (Bld) [#/Vol] 7.13 10*3/uL Normal 3.70-11.00 [facility] Comment on above: Order Comment: Speci men Type: BLOOD SPECIMENOrdering Facility: [facility] Address: [address] [place] [address] Performed By: #### 5 7021-8 ####[facility] LABCLIA [id number] [address] [place] COAG CORE PANEL BLDon 2021 aPTT Coag (PPP) [Time] 23.9 s Normal 23.0-32.4 [facility] Comment on above: Order Comment: Speci men Type: BLOOD SPECIMENOrdering Facility: [facility] Address: [address] [place], [place] [id number] Performed By: #### C ORPNL ####[facility] LABCLIA [id number] [place] [address] [place] Fibrinogen Coag (PPP) [Mass/Vol] 357 mg/dL Normal 200-400 [facility] Comment on above: Order Comment: Speci men Type: BLOOD SPECIMENOrdering Facility: [facility] Address: [address] [place], [place] [id number] Performed By: #### C ORPNL ####[facility] LABCLIA [id number] [place] [address] [place] INR Coag (PPP) [Relative time] 1.0 {INR} Normal 0.9-1.3 [facility] Comment on above: Order Comment: Specelsie schwartz Type: BLOOD SPECIMENOrdering Facility: [facility] Address: [address] [place] [address] Result Comment: Arabella min K Antagonist (VKA) Therapeutic Range: INR 2 to 3 (Target INR of 2.5) Note: For patients treated with VKA drugs, such as warfarin, the [place] [employer] 2012 Guideline recommends a therapeutic INR range of 2 to 3 (target INR of 2.5). This recommendation includes high-risk patients with antiphospholipid syndrome with previous arterial or venous thromboembolism, current-generation mechanical or bioprosthetic aortic heart valve replacement. Note: Patients with mechanical aortic valve replacement and additional risk factors for thromboembolic events (atrial fibrillation, previous thromboembolism, LV dysfunction, hypercoagulable conditions) or an older generation mechanical AVR (i.e., ball in-Cage) or any mechanical MVR should have a INR therapeutic range of 2.5 to 3.5 (target INR of 3). Steffany GH, et al. Chest 2012, 141:7S-47S Lorena RA, et al. [facility] 2017, 70: 252-289 Performed By: #### C ORPNL ####[facility] LABIA [id number] [place] [address] [place] PT Coag (PPP) [Time] 10.8 s Normal 9.7-13.0 [facility] Comment on above: Order Comment: Stephenie schwartz Type: BLOOD SPECIMENOrdering Facility: [facility] Address: [address] [place] [address] Performed By: #### C ORPNL ####[facility] LABIA [id number] [place] [address] [place] CONFIRM BLOOD TYPEon 022 ABO A Normal [facility] Comment on above: Order Comment: Stephenie schwartz Type: BLOOD SPECIMENOrdering Facility: [facility] Address: [address] [place] [address] Performed By: #### C ONABO ####[facility] BLOOD BANKIA [id number] [address] Rh Nom (Bld) Positive Normal [facility] Comment on above: Order Comment: Speci men Type: BLOOD SPECIMENOrdering Facility: [facility] Address: [address] [place] [id number] Performed By: #### C ONABO ####[facility] BLOOD BANKCLIA [id number] [address] CONSULTon 07-11-2021 CONSULT HNO ID: [id number] Author: Ladi Jackson MD Service: Ophthalmology Author Type: Resident Type: Consults Filed: 07/11/2021 10:23 AM Note Text: Attestation signed by Poonam Betancourt MD at 07/11/2021 11:26 AM I have discussed the case and the management of this patient's care with the Resident/Fellow, if applicable. I also have reviewed and agree with the assessment and plan as stated above and agree with all of its relevant components. Poonam Betancourt MD OPHTHALMOLOGY CONSULTATION REPORT Alberto Bianchi [id number] July 11, 2021 3:19 AM REASON FOR CONSULTATION Known history of bilateral CC fistulas, ophthalmologic exam ASSESSMENT AND PLAN 1. 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 She received bilateral laser treatment for a capsular opacification in both eyes without improvement in vision - Per patient, 03/2021 the patient began to have left eye redness as well that was noted by the eye doctor. Visual acuity at that time with right eye 20/80 and left eye 20/30 - CTA 03/2021 (unable to view scans) revealed bilateral carotid-cavernous venous fistulas more prominent on the right side with enlargement of both ophthalmic veins much worse in the right orbit - the patient denied evaluation by neurology 03/2021 and decision was made for conservative management - over the past two weeks, the patient has noted both horizontal and vertical diplopia increasing with frequency along with blurry vision that inhibits per from reading at near - patient denies headache, tinnitus, weakness, change in mentation - of note, patient remembers falling and hitting right side of face 11/2020. She is not on blood thinners Recommendations: - on exam today, patient with decrease in vision compared to previous eye exams at outside facility along with elevated intraocular pressure in left eye - on clinical exam, left eye ophthalmoplegia with exophthalmos. Left eye > right eye arterialization of conjunctival vessels - right eye dilation of retinal venous vasculature. No optic disc changes - clinical picture of left eye ophthalmoplegia, elevated intraocular pressure, arterialization of conjunctival blood vessels and concern for left optic neuropathy (known history of possible amblyopia right eye) suggestive of carotid cavernous fistula versus other pathology in orbital apex/cavernous sinus, as patient with known history of bilateral CC fistulas per outside records - recommend CTA brain w/ IV contrast for further evaluation of bilateral cavernous sinus given change in clinical status - defer to neurosurgery regarding imaging preference - recommend neurosurgical evaluation regarding possible endovascular repair or further evaluation of possible cavernous sinus pathology in setting of known bilateral carotid cavernous fistula - will continue to follow patient HPI This is a 80 year old female with PMH significant for bilateral CC fistulas who presents to the ED due to worsening double vision and blurry vision over the past week or two prior to presentation. Ophthalmology has been consulted for evaluation. PAST OCULAR HISTORY Pseudophakia OU S/p YAG OU Refractive error OU Amblyopia? OD Last eye exam: 07/10/2021 Eye medications: none PMH History reviewed. No pertinent past medical history. PSH No past surgical history on file. SOCIAL HISTORY Social History Tobacco Use - Smoking status: Not on file - Smokeless tobacco: Not on file Substance Use Topics - Alcohol use: Not on file - Drug use: Not on file MEDICATIONS Prior to Admission No prescriptions on file. Admission Current Facility-Administered Medications Medication Dose Route Frequency - iv contrast (radiology procedure) INTRAVENOUS DIRECTED PRN ALLERGIES ALLERGIES No Known Allergies OPHTHALMIC ROS Ophthalmic: Negative other than in HPI PHYSICAL EXAM: Eye Exam Base Eye Exam Visual Acuity Near CC: OD: 20/200 --> PH 20/70 OS: 20/400 --> PH 20/100 Tonometry (Tonopen, 1:30 AM) Right Left Pressure 11 18 Pupils Pupils Right PERRL Left PERRL Visual Richter Left Right Full Restrictions Partial outer superior temporal, inferior temporal, superior nasal, inferior nasal deficiencies Extraocular Movement Right Left 0 0 0 0 0 0 0 0 0 0 -2 0 -1 -1 -1 -1 Dilation Both eyes: 2.5% Phenylephrine/1.0% Mydriacyl @ 3:20 AM Santosh (more content not included)... Normal [facility] CONSULT HNO ID: [id number] Author: Rickey Nolan MD Service: Neurosurgery Author Type: Resident Type: Consults Filed: 07/11/2021 4:17 AM Note Text: NEUROSURGERY HISTORY AND PHYSICAL EXAMINATION PLEASE DO NOT REMOVE FROM THE CHART OR MODIFY PRINTED COPY Patient Name: Alberto Bianchi CHIEF COMPLAINT: Worsening vision and diplopia HPI: 80 year old right-handed female with PMHx b/l cataracts surgery in 2006 with recent scar revision in 03/2021, presenting with [facility]SH CTA c/f bilateral CCF in setting of worsening vision and diplopia over past 1 week. Patient reports new onset double vision and blurry vision that has been worsening over past week. Patient reports first noticing it with difficulty with reading book - vision has progressively worsened now reporting inability to read print in book - can still read larger print though. Patient reports double vision - worse with looking to right. Denies any HAs, spots in vision or difficulty with peripheral vision. No prior hx of head trauma or personal/family history of aneurysms AVM. Patient reportedly noticed injected left eye back in 03/2021 which prompted CTA at OSH. CTA obtained at OSH on in 04/03/2021 demonstrating bilateral carotid-cavernous venous fistulas more prominent on the right side with enlargement of both ophthalmic veins much worse in the right orbit. Patient reported vision was grossly stable, but lithographic proofer she followed with instructed to call her if there was any sudden worsening of vision. Given the development of the above symptoms - patient called lithographic proofer who instructed her to present to ED for evaluation. Anti-platelets/anti-coa gulants: Denies PAST MEDICAL HISTORY: History reviewed. No pertinent past medical history. PAST SURGICAL HISTORY: No past surgical history on file. FAMILY HISTORY: No family history on file. SOCIAL HISTORY: Social History Tobacco Use - Smoking status: Not on file - Smokeless tobacco: Not on file Substance Use Topics - Alcohol use: Not on file - Drug use: Not on file MEDICATIONS: No prescriptions on file. Current Facility-Administered Medications Medication Dose Route Frequency - iv contrast (radiology procedure) INTRAVENOUS DIRECTED PRN ALLERGIES: ALLERGIES No Known Allergies COMPLETE REVIEW OF SYSTEMS: See HPI PHYSICAL EXAM: AAOx3 PERRL OS 20/70 - conjunctiva injected - partial lateral gaze palsy OD 20/70 - EOMI intact VF intact Facial sensation intact FS, TM Speech intact No drift Motor strength 5/5 x 4 SILT CV: Regular rate/rhythm Chest: Comfortable on room air Abdomen: Soft, NT/ND DATA: Radiology: See HPI Laboratory: CBC, Coags, BMP, Mg, Phos Recent Labs 07/11/21 0205 WBC 7.13 HB 11.6 HCT 35.9* PLT 177 INR 1.0 NA 142 K 4.3 CHLOR 107* CO2 25 BUN 17 CREAT 0.89 GLUC 112* CA 9.5 MG 2.5* ASSESSMENT AND PLAN: 80 year old right-handed female with PMHx b/l cataracts surgery in 2006 with recent scar revision in 03/2021, presenting with OSH CTA c/f bilateral CCF in setting of worsening vision and diplopia over past 1 week. - no indication for acute neurosurgical intervention at this time - CTA head and neck - reviewed - admit to RNF under Dr. Mullen - plan for diagnostic angiogram - pre-op labs - appreciate ophtho recs - keep NPO - SCDs Above plan discussed with chief and staff, Dr. Mullen. Rickey Nolan PGY-2, Neurological Surgery Pager: [phone] 2:20 AM 07/11/21 NIGHT FLOAT RESIDENT: 6 PM - 6:30 AM Please page [phone] after 6:30 AM or if unable to reach the above Normal [facility] CRP SerPl-mCncon 07-11-2021 CRP [Mass/Vol] mg/L Normal <0.9 [facility] Comment on above: Order Comment: Speci men Type: BLOOD SPECIMENOrdering Facility: [facility] Address: [address] [place], [place] [id number] Performed By: #### 1 988-5 ####[facility] LABCLIA [id number] [place] CTA HEAD W IVCONon 2 CTA HEAD W IVCON * * *Final Report* * * DATE OF EXAM: Jul 11 2021 3:05AM [facility] 0022 - CTA HEAD W IVCON / PROCEDURE REASON: Arteriovenous fistula, acquired * * * * Physician Interpretation * * * * EXAMINATION: CTA NECK W IVCON, CTA HEAD W IVCON HISTORY: Intracranial vascular anomaly; blurry vision/double vision worse in her left eye; cataract surgery in March TECHNIQUE: Spiral high resolution axial images were obtained through the head, neck and superior mediastinum following bolus administration of intravenous contrast for CT angiography. 3D maximum intensity projection images were created, reviewed and archived . MQ: CTAHN_4 Contrast: 80 mL Omnipaque [address] Radiation dose: Integrated Dose-Length Product (DLP) for this visit = 535 mGy*cm. CT Dose Reduction Employed: No dose reduction techniques were required COMPARISON: None. RESULT: BRAIN: No noncontrast head CT was performed which significantly limits evaluation for acute intracranial findings. No gross acute intracranial abnormality is identified. NECK: Soft tissues: The soft tissue planes are maintained throughout. No evidence of a soft tissue mass in the neck or superior mediastinum. No significant lymphadenopathy is seen. Spine: Alignment is normal. Moderate degenerative changes are present. Lung apices: The visualized lung apices are clear. CT ARTERIOGRAM: Extracranial Circulation: Aortic Arch: There is a normal branching pattern from the aortic arch.. There is no significant stenosis in the proximal brachiocephalic vessels. Carotid Stenosis: Right Common: No significant stenosis. Right Internal Carotid Plaque: No significant plaque formation. Right Internal Carotid Stenosis (% by NASCET Criteria): 0 Left Common: No significant stenosis. Left Internal Carotid Plaque: No significant plaque formation. Left Internal Carotid Stenosis (% by NASCET Criteria): 0 Cervical Vertebral Arteries: Patency: Bilateral Dominance: Codominant Intracranial Circulation: Anterior Circulation: The intracranial ICAs are patent. Codominant A1 segments, patent anterior communicating artery, and unremarkable appearance of the A2 segments. Patent appearance of the MCAs bilaterally. Posterior Circulation: Patent codominant intracranial vertebral arteries. Patent proximal portions of the posterior inferior cerebellar arteries. Patent appearance of the basilar artery, proximal anterior-inferior cerebellar arteries, and proximal superior cerebellar arteries. Unremarkable appearance of the posterior cerebral arteries. There is no evidence of intracranial arterial occlusion, aneurysm, or high-grade stenosis. Asymmetric opacification of the left cavernous sinus relative to the right which is nonspecific in this mixed arterial venous phase of contrast. There is prominent and robust opacification of the left inferior ophthalmic vein and more mild early opacification of the left superior ophthalmic vein which is significantly SMALLER than the right superior ophthalmic vein. There is no associated extraocular muscle enlargement, orbital fat stranding, or proptosis. Afloat Cryptologic Manager (topogram) images: No additional findings. IMPRESSION: No hemodynamically significant stenosis or large vessel occlusion. 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 MRI with arterial spin labeling sequence or digital subtraction angiography should be considered to confirm as clinically warranted. Retirement Assistant: EMORY Transcribe Date/Time: Jul 11 2021 3:27A Dictated by : CAITIE TOWNSEND MD This examination was interpreted and the report reviewed and electronically signed by: PAIGE REYNOSO MD on Jul 11 2021 4:14AM EST [id number] Normal [facility] CTA NECK W IVCONon 2 CTA NECK W IVCON * * *Final Report* * * DATE OF EXAM: Jul 11 2021 3:05AM [facility] 0024 - CTA NECK W IVCON / PROCEDURE REASON: Intracranial vascular anomaly * * * * Physician Interpretation * * * * EXAMINATION: CTA NECK W IVCON, CTA HEAD W IVCON HISTORY: Intracranial vascular anomaly; blurry vision/double vision worse in her left eye; cataract surgery in March TECHNIQUE: Spiral high resolution axial images were obtained through the head, neck and superior mediastinum following bolus administration of intravenous contrast for CT angiography. 3D maximum intensity projection images were created, reviewed and archived . MQ: CTAHN_4 Contrast: 80 mL Omnipaque [address] Radiation dose: Integrated Dose-Length Product (DLP) for this visit = 535 mGy*cm. CT Dose Reduction Employed: No dose reduction techniques were required COMPARISON: None. RESULT: BRAIN: No noncontrast head CT was performed which significantly limits evaluation for acute intracranial findings. No gross acute intracranial abnormality is identified. NECK: Soft tissues: The soft tissue planes are maintained throughout. No evidence of a soft tissue mass in the neck or superior mediastinum. No significant lymphadenopathy is seen. Spine: Alignment is normal. Moderate degenerative changes are present. Lung apices: The visualized lung apices are clear. CT ARTERIOGRAM: Extracranial Circulation: Aortic Arch: There is a normal branching pattern from the aortic arch.. There is no significant stenosis in the proximal brachiocephalic vessels. Carotid Stenosis: Right Common: No significant stenosis. Right Internal Carotid Plaque: No significant plaque formation. Right Internal Carotid Stenosis (% by NASCET Criteria): 0 Left Common: No significant stenosis. Left Internal Carotid Plaque: No significant plaque formation. Left Internal Carotid Stenosis (% by NASCET Criteria): 0 Cervical Vertebral Arteries: Patency: Bilateral Dominance: Codominant Intracranial Circulation: Anterior Circulation: The intracranial ICAs are patent. Codominant A1 segments, patent anterior communicating artery, and unremarkable appearance of the A2 segments. Patent appearance of the MCAs bilaterally. Posterior Circulation: Patent codominant intracranial vertebral arteries. Patent proximal portions of the posterior inferior cerebellar arteries. Patent appearance of the basilar artery, proximal anterior-inferior cerebellar arteries, and proximal superior cerebellar arteries. Unremarkable appearance of the posterior cerebral arteries. There is no evidence of intracranial arterial occlusion, aneurysm, or high-grade stenosis. Asymmetric opacification of the left cavernous sinus relative to the right which is nonspecific in this mixed arterial venous phase of contrast. There is prominent and robust opacification of the left inferior ophthalmic vein and more mild early opacification of the left superior ophthalmic vein which is significantly SMALLER than the right superior ophthalmic vein. There is no associated extraocular muscle enlargement, orbital fat stranding, or proptosis. Afloat Cryptologic Manager (topogram) images: No additional findings. IMPRESSION: No hemodynamically significant stenosis or large vessel occlusion. 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 MRI with arterial spin labeling sequence or digital subtraction angiography should be considered to confirm as clinically warranted. Retirement Assistant: EMORY Transcribe Date/Time: Jul 11 2021 3:27A Dictated by : CAITIE TOWNSEND MD This examination was interpreted and the report reviewed and electronically signed by: PAIGE REYNOSO MD on Jul 11 2021 4:14AM EST [id number] Normal [facility] Cardiolipin IgA Ser IA-aCnco n 07-11-2021 Cardiolipin IgA IA Qn (S) 9.0 [APL'U] Normal <12.0 [facility] Comment on above: Order Comment: Speci men Type: BLOOD SPECIMENOrdering Facility: [facility] Address: [address] [place] [address] Result Comment: <12 APL Negative 12-20 APL Indeterminate >20 APL Positive The following results were obtained with the [employer] QUANTA Lite SEDRICK IgA III TRIPP. Cardiolipin IgA values obtained with the different manufacturers' assay methods may not be used interchangeably. The magnitude of the reported IgA levels cannot be correlated to an endpoint titer. 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 Normal [facility] ED PROV NOTEon 07-11-2021 ED PROV NOTE HNO ID: [id number] Author: Jazz Chung MD Service: Emergency Medicine Author Type: Physician Type: ED Provider Notes Filed: 07/12/2021 6:35 PM Note Text: ED Provider Note Patient Name: Alebrto Bianchi SERVICE DATE: 07/10/21 History Patient presents with: Eye Complaint HPI Alberto Bianchi is a 80 year old female presenting with complaints of vision changes. The patient presents with her and son who helped to provide history at the patient's request. She states that she has a history of cataract surgery in both eyes that occurred in March of this year. She states that since November she has had blurred vision in both eyes as well as double vision that seems to be worse with her left eye. She states that she was seen by an eye physician in [place], [place] recently and had a CT scan of her brain performed that showed an abnormality in her eye vasculature. She states she was sent to this emergency department to be seen by a specialist. She denies any new numbness, weakness, speech or swallowing difficulty, or change in coordination. She states that she does have some difficulty with walking due to the change in her vision. Chart reviewed -seen by lithographic proofer at [facility] today. 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 PMH: Denies chronic medical conditions or daily medications Surgical history: Endorses history of bilateral cataract surgery, otherwise denies other surgeries Family history: Heart failure in mother, cancer in father. Social history: denies tobacco, alcohol, or drug use. ALLERGIES Not on File Review of Systems Constitutional: Negative for chills and fever. HENT: Negative for sore throat. Eyes: Positive for visual disturbance. Respiratory: Negative for cough and shortness of breath. Cardiovascular: Negative for chest pain and leg swelling. Gastrointestinal: Negative for abdominal pain, constipation, diarrhea and vomiting. Genitourinary: Negative for dysuria. Musculoskeletal: Negative for neck stiffness. Skin: Negative for rash. Neurological: Negative for syncope. Physical Exam BP 175/86 Pulse 84 Temp (Src) 97.7 (Temporal) Resp 16 Wt 155 lb (70.3kg) SpO2 98% O2 Therapy: Room Air Physical Exam Vitals and nursing note reviewed. Constitutional: General: She is not in acute distress. Appearance: She is not toxic-appearing. HENT: Head: Normocephalic and atraumatic. Nose: No rhinorrhea. Mouth/Throat: Mouth: Mucous membranes are moist. Pharynx: Oropharynx is clear. Eyes: Extraocular Movements: Extraocular movements intact. Comments: Left eye with conjunctival injection. PERRL, EOMI, vision grossly intact to bilateral eyes Neck: Trachea: No tracheal deviation. Cardiovascular: Rate and Rhythm: Normal rate and regular rhythm. Pulmonary: Effort: Pulmonary effort is normal. No respiratory distress. Breath sounds: Normal breath sounds. No wheezing. Abdominal: General: There is no distension. Palpations: Abdomen is soft. Tenderness: There is no abdominal tenderness. There is no right CVA tenderness, left CVA tenderness, guarding or rebound. Musculoskeletal: Cervical back: Neck supple. Right lower leg: No edema. Left lower leg: No edema. Skin: General: Skin is warm and dry. Neurological: Mental Status: She is alert and oriented to person, place, and time. GCS: GCS eye subscore is 4. GCS verbal subscore is 5. GCS motor subscore is 6. Cranial Nerves: Cranial nerves are intact. Sensory: Sensation is intact. Motor: Motor function is intact. Psychiatric: Mood and Affect: Mood normal. Diagnostic Testing ED Labs Ordered and Reviewed BASIC METABOLIC PNL - Abnormal; Notable for the following components: Result Value Ref Range Glucose 112 (*) 74 - 99 mg/dL Chloride 107 (*) 97 - 105 mmol/L All other components within normal limits MAGNESIUM BLD - Abnormal; Notable for the following components: Magnesium 2.5 (*) 1.7 - 2.3 mg/dL All other components within normal limits CBC + DIFF - Abnormal; Notable for the following components: RBC 3.81 (*) 3.90 - 5.20 m/uL Hematocrit 35.9 (*) 36.0 - 46.0 % All other components within normal limits Narrative: This is an appended report. These results have been appended to a previously verified report. PROTHROMBIN TIME/PT - Normal HOMOCYSTEINE - Normal COAG CORE PANEL BLD - Normal Narrative: Unfractionated Heparin Therapeutic Ranges: Standard Heparin Nomogram: 53 to 78 seconds (anti-Xa level of 0.3 to 0.7 U/ml) Low Dose/ACS Nomogram: 49 to 67 seconds (anti-Xa level of 0.2 to 0.5 U/ml) Stroke Treatment Nomogram: 49 to 67 seconds (anti-Xa level of 0.2 to 0.5 U/ml) Note: The APTT therapeutic range has been determined for the current lot of laboratory APTT reagent in use throughout the Cl (more content not included)... Normal [facility] HISTORY PHYSICALon HISTORY PHYSICAL HNO ID: [id number] Author: Vladimir Guerrero MD Service: Neurosurgery Author Type: Fellow Type: HANDP Filed: 07/11/2021 7:58 AM Note Text: Attestation signed by Faheem Mims MD at 07/11/2021 10:17 AM [facility] STAFF PHYSICIAN NOTE OF PERSONAL INVOLVEMENT IN CARE I have reviewed the history and physical examination obtained and documented by the fellow and I personally participated in the elizabeth components. I have discussed the case and management of the patient's care. I agree with the above unless otherwise noted. SIGNATURE: Faheem Mims MD July 11, 2021 RADIOLOGY PROCEDURAL SEDATION HISTORY AND PHYSICAL EXAM SERVICE DATE: 07/11/2021 SERVICE TIME: 7:45 Subjective HPI: This is a 80 year old female who presents with worsening double vision on looking to the right with concern for CCF PROCEDURE SCHEDULED: Procedure(s): SELECTIVE CATH PLACEMENT COMMON CAROTID OR INNOMINATE ARTERY BILATERAL W/ ANGIOGRAPHY OF THE IPSILATERAL EXTRACRANIAL CAROTID CIRCULATION AND ALL ASSOCIATED W/ ANGIOGRAPHY OF THE CERVICOCEREBRAL ARCH (N/A) RADIOLOGY ORDER PLACED: PAST ANESTHESIA HISTORY: No history of adverse event History reviewed. No pertinent past medical history. No past surgical history on file. Prior to Admission medications as of Not on File ALLERGIES No Known Allergies Objective PHYSICAL EXAM: The remainder of the physical exam is noncontributory. AIRWAY: Airway Visualization of Uvula: Yes Mouth opening greater than 2 fingerbreadths: Yes Neck Full Range of Motion: Yes LUNGS: Lungs clear to auscultation, Good diaphragmatic excursion CARDIAC: Normal S1 and S2; no rubs, murmurs, or gallops Assessment/Plan ASA Class: ASA Class:: Patient with mild systemic disease Provisional Diagnosis/Treatment Plan: DXA SEDATION GOAL: Moderate SIGNATURE: Vladimir Guerrero MD PATIENT NAME: Alberto Bianchi DATE: July 11, 2021 TIME: 7:58 AM Normal [facility] HYPERCOAG PANELon 07-11-2021 Activated protein C resistance Coag (PPP) [Time ratio] 2.29 Ratio Normal >1.96 [facility] Comment on above: Order Comment: Stephenie schwartz Type: BLOOD SPECIMENOrdering Facility: [facility] Address: [address] [place] [address] Performed By: #### H COAG ####[facility] [id number] [address] STATES OF [facility] Antithrombin actual/normal Chromogenic method (PPP) [Rel catalytic activity/Vol] 100 % Normal 84-138 [facility] Comment on above: Order Comment: Stephenie schwartz Type: BLOOD SPECIMENOrdering Facility: [facility] Address: [address] [place] [address] Performed By: #### H COAG ####[facility] LABIA [id number] [address] STATES OF [facility] aPTT Coag (Bld) [Time] 29.0 s Normal 24.0-35.1 [facility] Comment on above: Order Comment: Stephenie schwartz Type: BLOOD SPECIMENOrdering Facility: [facility] Address: [address] [place] [address] Performed By: #### H COAG ####[facility] [id number] [address] [place] aPTT W excess hexagonal phase phospholipid Coag (PPP) [Time] 44.3 seconds Normal 34.0-51.8 [facility] Comment on above: Order Comment: Speci men Type: BLOOD SPECIMENOrdering Facility: [facility] Address: [address] [place], [place] [id number] Performed By: #### H COAG ####[facility] [id number] [place] [address] [place] Coagulation factor VIII activity actual/normal Coag (PPP) [Relative time] 227 % High 50-173 [facility] Comment on above: Order Comment: Speci men Type: BLOOD SPECIMENOrdering Facility: [facility] Address: [address] [place], [place] [id number] Performed By: #### H COAG ####[facility] [id number] [address] [place] Delta dRVVT Coag (PPP) [Time diff] 3.6 delta seconds Normal <7.1 [facility] Comment on above: Order Comment: Speci men Type: BLOOD SPECIMENOrdering Facility: [facility] Address: [address] [place], [place] [id number] Performed By: #### H COAG ####[facility] [id number] [address] [place] dRVVT W excess hexagonal phase phospholipid actual/normal Coag (PPP) [Relative time] 40.6 seconds Normal 34.2-47.9 [facility] Comment on above: Order Comment: Speci men Type: BLOOD SPECIMENOrdering Facility: [facility] Address: [address] [place] [address] Performed By: #### H COAG ####[facility] [id number] [place] [address] Protein C actual/normal Coag (PPP) [Relative time] 161 % High 76-147 [facility] Comment on above: Order Comment: Speci men Type: BLOOD SPECIMENOrdering Facility: [facility] Address: [address] [place] [address] Performed By: #### H COAG ####[facility] LABCLIA [id number] [address] Protein S actual/normal Coag (PPP) [Relative time] 68 % Normal 59-152 [facility] Comment on above: Order Comment: Speci men Type: BLOOD SPECIMENOrdering Facility: [facility] Address: [address] [place] [address] Performed By: #### H COAG ####[facility] LABCLIA [id number] [address] Thrombin time Coag (PPP) [Time] 17.3 seconds Normal <18.6 [facility] Comment on above: Order Comment: Speci men Type: BLOOD SPECIMENOrdering Facility: [facility] Address: [address] [place] [address] Performed By: #### H COAG ####[facility] LABCLIA [id number] [address] [place] Hcys SerPl-sCncon 07-11-2021 Homocysteine [Moles/Vol] 9.8 umol/L Normal <15.1 [facility] Comment on above: Order Comment: Speci men Type: BLOOD SPECIMENOrdering Facility: [facility] Address: [address] [place] [address] Performed By: #### 1 3965-9 ####[facility] LABCLIA [id number] [address] [place] IR CAROTID BILon 07-11-2021 IR CAROTID ANGIE * * *Final Report* * * DATE OF EXAM: Jul 11 2021 12:40PM NDA 5943 - IR CAROTID ANGIE / PROCEDURE REASON: Carotid artery-cavernous sinus fistula * * * * Physician Interpretation * * * * Diagnostic Cerebral Angiogram Report CLINICAL HISTORY: This patient is a 80 years-old female with worsening demyelination and blurry vision with concern for carotid cavernous fistula on CT angiogram. A diagnostic cerebral angiogram was requested to evaluate the cerebral vasculature. PROCEDURE: 1. Ultrasound-guided radial artery access. 2. Diagnostic cerebral angiogram. TIME OUT TIME: :35 PROCEDURE START TIME: :35 PROCEDURE END TIME: 12:35 ATTENDING: Faheem Mims MD IT FIELD TECHNICIAN (FELLOW): Vladimir Guerrero MD The procedure was performed by the attending, with an esl instructional assistant. ANGIOGRAPHY MATERIALS: Diagnostic catheter: 5 Maltese Galvan 2 catheter Guidewire: 0.035 angled tapered Glidewire. Fluoroscopic Radiation Summary: Plane A, Air Kerma: 363.3 mGy Plane B, Air Kerma: 105.9 mGy Dose Area Product (DAP): 78674.0 mGy*cm2 Fluoro time: 19:54 min:sec Radiation dose exceed 5 Gy: No If radiation dose exceeded 5 Gy, was counseling and instructional brochure provided:N/A Contrast (intra-arterial): 130 ml of OMNIPAQUE 240 ANESTHESIA: Conscious sedation with 50 mcg fentanyl and 1 mg Versed were administered by IV with continuous monitoring by a dedicated nurse. Pulsed oximetry, cardiopulmonary monitoring and electrocardiography was performed throughout the procedure. Intra-service time (monitoring for moderate sedation) (starts with administration of agent, ends when continuous [id number] time ends): 75 minutes. Patient monitoring: I personally supervised and directed an independent trained observer who assisted in monitoring the patient?s level of consciousness and physiological status throughout the procedure. TECHNIQUE: After discussion of the risks and benefits of diagnostic cerebral angiography, informed consent was obtained. The patient was brought to the angiography suite and placed in supine position. After hemodynamic monitoring was established, conscious sedation was administered by our nursing staff. The right wrist and forearm were prepped and draped in the usual standard fashion, and 1% lidocaine was used for local anesthetic. The right radial artery access site was localized 2 cm proximal to the radial styloid process. The artery was assessed using ultrasound: Right radial artery: Normal and patent. The right radial artery was found to be sufficient for transradial access. A permanent image of the artery was archived. The artery was then accessed using Seldinger technique under ultrasound guidance. A 5 Maltese slender sheath was inserted and connected to heparinized saline flush. A vasodilatory medication infusion consisting of nitroglycerine, verapamil, and heparin was administered intra-arterially through the radial sheath over 2 minutes. The diagnostic catheter and wire were then fluoroscopically advanced for selective catheterization of the following vessels: Brachiocephalic vascular family: Right common carotid artery, cervical views. Right common carotid artery, intracranial views. Standard AP, lateral and oblique views. Right subclavian artery to visualize vertebral artery, intracranial views. Standard AP, lateral and Kaushal's views. Left carotid vascular family: Left common carotid artery, cervical views. Left common carotid artery, intracranial views. Standard AP, lateral and oblique views. Left subclavian vascular family: Left subclavian artery to visualize vertebral artery, intracranial views. Standard AP, lateral and Kaushal's views. Angiographic imaging was performed at each selected vessel with views as described above. After no further views and images were determined to be necessary, the procedure was terminated. All catheters and wires were removed from the patient. Hemostasis at the right wrist was obtained with TR band. The patient was transferred to the radiology recovery room in stable condition without immediate complication. FINDINGS: RIGHT COMMON CAROTID ARTERY INJECTION (cervical): DSA images of the right anterior cervical circulation demonstrate normal course and caliber of the distal common carotid artery. The bifurcation is at C3. There is no significant atherosclerosis at the bifurcation by NASCET criteria. The cervical ICA has severely tortuous course and normal caliber. The proximal ECA and its branches demonstrate a normal course and caliber. There is no evidence of dissection or arteriovenous shunting. RIGHT COMMON CAROTID ARTERY INJECTION (cranial): DSA images of the right anterior intracranial circulation demonstrate normal course and caliber of the petrous, cavernous and supraclinoid segments of the internal carotid artery. There is early venous shunting from cavernous branches of right ICA to left ca (more content not included)... Normal [facility] IR CAROTID NECK BILon 2021 IR CAROTID NECK ANGIE * * *Final Report* * * DATE OF EXAM: Jul 11 2021 12:40PM NDA 6488 - IR CAROTID NECK ANGIE / PROCEDURE REASON: Carotid artery-cavernous sinus fistula * * * * Physician Interpretation * * * * Diagnostic Cerebral Angiogram Report CLINICAL HISTORY: This patient is a 80 years-old female with worsening demyelination and blurry vision with concern for carotid cavernous fistula on CT angiogram. A diagnostic cerebral angiogram was requested to evaluate the cerebral vasculature. PROCEDURE: 1. Ultrasound-guided radial artery access. 2. Diagnostic cerebral angiogram. TIME OUT TIME: 11:35 PROCEDURE START TIME: 11:35 PROCEDURE END TIME: 12:35 ATTENDING: Faheem Mims MD IT FIELD TECHNICIAN (FELLOW): Vladimir Guerrero MD The procedure was performed by the attending, with an esl instructional assistant. ANGIOGRAPHY MATERIALS: Diagnostic catheter: 5 Maltese Galvan 2 catheter Guidewire: 0.035 angled tapered Glidewire. Fluoroscopic Radiation Summary: Plane A, Air Kerma: 363.3 mGy Plane B, Air Kerma: 105.9 mGy Dose Area Product (DAP): 52156.0 mGy*cm2 Fluoro time: 19:54 min:sec Radiation dose exceed 5 Gy: No If radiation dose exceeded 5 Gy, was counseling and instructional brochure provided:N/A Contrast (intra-arterial): 130 ml of OMNIPAQUE 240 ANESTHESIA: Conscious sedation with 50 mcg fentanyl and 1 mg Versed were administered by IV with continuous monitoring by a dedicated nurse. Pulsed oximetry, cardiopulmonary monitoring and electrocardiography was performed throughout the procedure. Intra-service time (monitoring for moderate sedation) (starts with administration of agent, ends when continuous [id number] time ends): 75 minutes. Patient monitoring: I personally supervised and directed an independent trained observer who assisted in monitoring the patient?s level of consciousness and physiological status throughout the procedure. TECHNIQUE: After discussion of the risks and benefits of diagnostic cerebral angiography, informed consent was obtained. The patient was brought to the angiography suite and placed in supine position. After hemodynamic monitoring was established, conscious sedation was administered by our nursing staff. The right wrist and forearm were prepped and draped in the usual standard fashion, and 1% lidocaine was used for local anesthetic. The right radial artery access site was localized 2 cm proximal to the radial styloid process. The artery was assessed using ultrasound: Right radial artery: Normal and patent. The right radial artery was found to be sufficient for transradial access. A permanent image of the artery was archived. The artery was then accessed using Seldinger technique under ultrasound guidance. A 5 Maltese slender sheath was inserted and connected to heparinized saline flush. A vasodilatory medication infusion consisting of nitroglycerine, verapamil, and heparin was administered intra-arterially through the radial sheath over 2 minutes. The diagnostic catheter and wire were then fluoroscopically advanced for selective catheterization of the following vessels: Brachiocephalic vascular family: Right common carotid artery, cervical views. Right common carotid artery, intracranial views. Standard AP, lateral and oblique views. Right subclavian artery to visualize vertebral artery, intracranial views. Standard AP, lateral and Kaushal's views. Left carotid vascular family: Left common carotid artery, cervical views. Left common carotid artery, intracranial views. Standard AP, lateral and oblique views. Left subclavian vascular family: Left subclavian artery to visualize vertebral artery, intracranial views. Standard AP, lateral and Kaushal's views. Angiographic imaging was performed at each selected vessel with views as described above. After no further views and images were determined to be necessary, the procedure was terminated. All catheters and wires were removed from the patient. Hemostasis at the right wrist was obtained with TR band. The patient was transferred to the radiology recovery room in stable condition without immediate complication. FINDINGS: RIGHT COMMON CAROTID ARTERY INJECTION (cervical): DSA images of the right anterior cervical circulation demonstrate normal course and caliber of the distal common carotid artery. The bifurcation is at C3. There is no significant atherosclerosis at the bifurcation by NASCET criteria. The cervical ICA has severely tortuous course and normal caliber. The proximal ECA and its branches demonstrate a normal course and caliber. There is no evidence of dissection or arteriovenous shunting. RIGHT COMMON CAROTID ARTERY INJECTION (cranial): DSA images of the right anterior intracranial circulation demonstrate normal course and caliber of the petrous, cavernous and supraclinoid segments of the internal carotid artery. There is early venous shunting from cavernous branches of right ICA to le (more content not included)... 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 A diagnostic cerebral angiogram was requested to evaluate the cerebral vasculature. PROCEDURE: 1. Ultrasound-guided radial artery access. 2. Diagnostic cerebral angiogram. TIME OUT TIME: 11:35 PROCEDURE START TIME: 11:35 PROCEDURE END TIME: 12:35 ATTENDING: Faheem Mims MD IT FIELD TECHNICIAN (FELLOW): Vladimir Guerrero MD The procedure was performed by the attending, with an esl instructional assistant. ANGIOGRAPHY MATERIALS: Diagnostic catheter: 5 Maltese Galvan 2 catheter Guidewire: 0.035 angled tapered Glidewire. Fluoroscopic Radiation Summary: Plane A, Air Kerma: 363.3 mGy Plane B, Air Kerma: 105.9 mGy Dose Area Product (DAP): 43326.0 mGy*cm2 Fluoro time: 19:54 min:sec Radiation dose exceed 5 Gy: No If radiation dose exceeded 5 Gy, was counseling and instructional brochure provided:N/A Contrast (intra-arterial): 130 ml of OMNIPAQUE 240 ANESTHESIA: Conscious sedation with 50 mcg fentanyl and 1 mg Versed were administered by IV with continuous monitoring by a dedicated nurse. Pulsed oximetry, cardiopulmonary monitoring and electrocardiography was performed throughout the procedure. Intra-service time (monitoring for moderate sedation) (starts with administration of agent, ends when continuous [id number] time ends): 75 minutes. Patient monitoring: I personally supervised and directed an independent trained observer who assisted in monitoring the patient?s level of consciousness and physiological status throughout the procedure. TECHNIQUE: After discussion of the risks and benefits of diagnostic cerebral angiography, informed consent was obtained. The patient was brought to the angiography suite and placed in supine position. After hemodynamic monitoring was established, conscious sedation was administered by our nursing staff. The right wrist and forearm were prepped and draped in the usual standard fashion, and 1% lidocaine was used for local anesthetic. The right radial artery access site was localized 2 cm proximal to the radial styloid process. The artery was assessed using ultrasound: Right radial artery: Normal and patent. The right radial artery was found to be sufficient for transradial access. A permanent image of the artery was archived. The artery was then accessed using Seldinger technique under ultrasound guidance. A 5 Maltese slender sheath was inserted and connected to heparinized saline flush. A vasodilatory medication infusion consisting of nitroglycerine, verapamil, and heparin was administered intra-arterially through the radial sheath over 2 minutes. The diagnostic catheter and wire were then fluoroscopically advanced for selective catheterization of the following vessels: Brachiocephalic vascular family: Right common carotid artery, cervical views. Right common carotid artery, intracranial views. Standard AP, lateral and oblique views. Right subclavian artery to visualize vertebral artery, intracranial views. Standard AP, lateral and Kaushal's views. Left carotid vascular family: Left common carotid artery, cervical views. Left common carotid artery, intracranial views. Standard AP, lateral and oblique views. Left subclavian vascular family: Left subclavian artery to visualize vertebral artery, intracranial views. Standard AP, lateral and Kaushal's views. Angiographic imaging was performed at each selected vessel with views as described above. After no further views and images were determined to be necessary, the procedure was terminated. All catheters and wires were removed from the patient. Hemostasis at the right wrist was obtained with TR band. The patient was transferred to the radiology recovery room in stable condition without immediate complication. FINDINGS: RIGHT COMMON CAROTID ARTERY INJECTION (cervical): DSA images of the right anterior cervical circulation demonstrate normal course and caliber of the distal common carotid artery. The bifurcation is at C3. There is no significant atherosclerosis at the bifurcation by NASCET criteria. The cervical ICA has severely tortuous course and normal caliber. The proximal ECA and its branches demonstrate a normal course and caliber. There is no evidence of dissection or arteriovenous shunting. RIGHT COMMON CAROTID ARTERY INJECTION (cranial): DSA images of the right anterior intracranial circulation demonstrate normal course and caliber of the petrous, cavernous and supraclinoid segments of the internal carotid artery. There is early venous shunting from cavernous branches of right ICA to le (more content not included)... 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 A diagnostic cerebral angiogram was requested to evaluate the cerebral vasculature. PROCEDURE: 1. Ultrasound-guided radial artery access. 2. Diagnostic cerebral angiogram. TIME OUT TIME: 11:35 PROCEDURE START TIME: 11:35 PROCEDURE END TIME: 12:35 ATTENDING: Faheem Mims MD IT FIELD TECHNICIAN (FELLOW): Vladimir Guerrero MD The procedure was performed by the attending, with an esl instructional assistant. ANGIOGRAPHY MATERIALS: Diagnostic catheter: 5 Maltese Galvan 2 catheter Guidewire: 0.035 angled tapered Glidewire. Fluoroscopic Radiation Summary: Plane A, Air Kerma: 363.3 mGy Plane B, Air Kerma: 105.9 mGy Dose Area Product (DAP): 40217.0 mGy*cm2 Fluoro time: 19:54 min:sec Radiation dose exceed 5 Gy: No If radiation dose exceeded 5 Gy, was counseling and instructional brochure provided:N/A Contrast (intra-arterial): 130 ml of OMNIPAQUE 240 ANESTHESIA: Conscious sedation with 50 mcg fentanyl and 1 mg Versed were administered by IV with continuous monitoring by a dedicated nurse. Pulsed oximetry, cardiopulmonary monitoring and electrocardiography was performed throughout the procedure. Intra-service time (monitoring for moderate sedation) (starts with administration of agent, ends when continuous [id number]-[id number] time ends): 75 minutes. Patient monitoring: I personally supervised and directed an independent trained observer who assisted in monitoring the patient?s level of consciousness and physiological status throughout the procedure. TECHNIQUE: After discussion of the risks and benefits of diagnostic cerebral angiography, informed consent was obtained. The patient was brought to the angiography suite and placed in supine position. After hemodynamic monitoring was established, conscious sedation was administered by our nursing staff. The right wrist and forearm were prepped and draped in the usual standard fashion, and 1% lidocaine was used for local anesthetic. The right radial artery access site was localized 2 cm proximal to the radial styloid process. The artery was assessed using ultrasound: Right radial artery: Normal and patent. The right radial artery was found to be sufficient for transradial access. A permanent image of the artery was archived. The artery was then accessed using Seldinger technique under ultrasound guidance. A 5 Maltese slender sheath was inserted and connected to heparinized saline flush. A vasodilatory medication infusion consisting of nitroglycerine, verapamil, and heparin was administered intra-arterially through the radial sheath over 2 minutes. The diagnostic catheter and wire were then fluoroscopically advanced for selective catheterization of the following vessels: Brachiocephalic vascular family: Right common carotid artery, cervical views. Right common carotid artery, intracranial views. Standard AP, lateral and oblique views. Right subclavian artery to visualize vertebral artery, intracranial views. Standard AP, lateral and Kaushal's views. Left carotid vascular family: Left common carotid artery, cervical views. Left common carotid artery, intracranial views. Standard AP, lateral and oblique views. Left subclavian vascular family: Left subclavian artery to visualize vertebral artery, intracranial views. Standard AP, lateral and Kaushal's views. Angiographic imaging was performed at each selected vessel with views as described above. After no further views and images were determined to be necessary, the procedure was terminated. All catheters and wires were removed from the patient. Hemostasis at the right wrist was obtained with TR band. The patient was transferred to the radiology recovery room in stable condition without immediate complication. FINDINGS: RIGHT COMMON CAROTID ARTERY INJECTION (cervical): DSA images of the right anterior cervical circulation demonstrate normal course and caliber of the distal common carotid artery. The bifurcation is at C3. There is no significant atherosclerosis at the bifurcation by NASCET criteria. The cervical ICA has severely tortuous course and normal caliber. The proximal ECA and its branches demonstrate a normal course and caliber. There is no evidence of dissection or arteriovenous shunting. RIGHT COMMON CAROTID ARTERY INJECTION (cranial): DSA images of the right anterior intracranial circulation demonstrate normal course and caliber of the petrous, cavernous and supraclinoid segments of the internal carotid artery. There is early venous shunting from cavernous branches of right ICA to le (more content not included)... Normal [facility] Magnesium SerPl-mCncon 07-11 Magnesium [Mass/Vol] 2.5 mg/dL High 1.7-2.3 [facility] Comment on above: Order Comment: Speci men Type: BLOOD SPECIMENOrdering Facility: [facility] Address: [address] [place] [address] [place] [address] Performed By: #### 1 9123-9, 31744-1 ####[facility] LABCLIA [id number] [place] [address] [place] PROTHROMBIN GENE PCRon 07-11 PROTHROMBIN GENE MUTATION Normal [facility] Comment on above: Order Comment: Speci men Type: BLOOD SPECIMENOrdering Facility: [facility] Address: [address] [place] [id number] Result Comment: Prot hrombin Gene Mutation Laboratory Accession Number: [id number] Result: NORMAL Interpretation: The DNA sample is negative for the c.*97G>A variant (legacy name 47207G>A) in the 3' untranslated region of the Factor II (F2) gene. This result is not associated with an increased risk of thromboembolic disease. Thromboembolic disease is a multifactorial disorder and other causes are not excluded by this result. Methodology: Isolated Genomic DNA from the patient's blood specimen is evaluated for the c*97G>A ([id number]) variant of the F2 gene [RefSeq [id number];GRCh38/hg38] by multiplex polymerase chain reaction (PCR) followed by melting curve analysis. Limitations: This assay is designed to detect the c.*97G>A (81626L>A) variant in the F2 gene. Uncommon variants or single nucleotide polymorphisms may affect binding of probes and may rarely result in false negative, false positive or indeterminate results. This assay does not detect other disease-associated rare variants in F2 or other causes of thromboembolic disease. Disclaimer: This test was developed and its performance characteristics determined by [facility]'s [facility] ([facility] It has not been cleared or approved by the FDA. [facility] is regulated under CLIA as certified to perform high- complexity testing. This test is used for clinical purposes. It should not be regarded as investigational or for research. Testing and interpretation performed at [facility], [address] [place] [id number]. CLIA Number: [id number] References: 1) Inheritied Thrombophilias in . ACOG Practice Bulletin. No. 197. [place] [employer]. Obsete Gynecol 2018;132:e18-34. 2) Haley SR, Ralf FR, Manish PH, and Jannette MARTINS. A common genetic variation in the 3'-untranslated region of the prothrombin gene is associated with elevated plasma prothrombin levels and an increase in venous thrombosis. Blood 88:3698-703, 1995. 3) Tanna Bates, Ac Donis, Kalpana Sanders, Gwen Saini. Prothrombin 18548H>T: 16 new cases, association with the 11149W>G polymorphism, and literature review. J Thromb Haemost. 2009;9:1585-7. As reviewed by Candida Peterson, PhD, HCLD Performed By: #### P TGEN ####[facility] [id number] [address] [facility] PT EDon 07-11-2021 PT ED HNO ID: [id number] Author: Gilbert Lagunas RN Service: ? Author Type: Registered Nurse Type: Patient Education Filed: 07/11/2021 12:05 PM Note Text: AMBULATORY PATIENT EDUCATION TOPIC: Survival Skills: intraprocedural instructions READINESS TO LEARN COGNITIVE ABILITY: Alert and oriented MOTIVATION TO LEARN: Interested FAMILY SUPPORT: Unable to assess - Family not present INSTRUCTION PROVIDED TO: Patient PATIENT LEARNS BEST BY: Verbal Instruction FACTORS AFFECTING LEARNING: Unable to assess PHYSICAL LIMITATIONS AFFECTING LEARNING: None LEARNING RESPONSE DIAGNOSIS: Dx Angio METHOD OF INSTRUCTION: Individual instruction PATIENT / FAMILY RESPONSE: Verbalizes understanding of: EQUIPMENT USE-Correct use of Equipment FOLLOW-UP PLAN: Complete - No need for follow-up SUPPLEMENTAL MATERIAL: None REFERRAL (RECOMMENDATION): None Electronically Signed By: Gilbert Lagunas RN In Department: HB 50 Normal [facility] PT panel Coag (PPP)on 2021 INR Coag (PPP) [Relative time] 1.0 {INR} Normal 0.9-1.3 [facility] Comment on above: Order Comment: Speci men Type: BLOOD SPECIMENOrdering Facility: [facility] Address: [address] [place], [place] [id number] Result Comment: Arabella min K Antagonist (VKA) Therapeutic Range: INR 2 to 3 (Target INR of 2.5) Note: For patients treated with VKA drugs, such as warfarin, the [place] [employer] 2012 Guideline recommends a therapeutic INR range of 2 to 3 (target INR of 2.5). This recommendation includes high-risk patients with antiphospholipid syndrome with previous arterial or venous thromboembolism, current-generation mechanical or bioprosthetic aortic heart valve replacement. Note: Patients with mechanical aortic valve replacement and additional risk factors for thromboembolic events (atrial fibrillation, previous thromboembolism, LV dysfunction, hypercoagulable conditions) or an older generation mechanical AVR (i.e., ball in-Cage) or any mechanical MVR should have a INR therapeutic range of 2.5 to 3.5 (target INR of 3). Steffany VELAZQUEZ, et al. Chest 2012, 141:7S-47S Lorena ANDERSON et al. [facility] 2017, 70: 252-289 Performed By: #### 3 4528-0 ####[facility] LABIA [id number] [place] [address] [place] PT Coag (PPP) [Time] 10.8 s Normal 9.7-13.0 [facility] Comment on above: Order Comment: Speci men Type: BLOOD SPECIMENOrdering Facility: [facility] Address: [address] [place] [address] Performed By: #### 3 4528-0 ####[facility] [id number] [place] [address] [place] Phosphate SerPl-mCncon 07-11 Phosphate [Mass/Vol] 3.1 mg/dL Normal 2.7-4.8 [facility] Comment on above: Order Comment: Speci men Type: BLOOD SPECIMENOrdering Facility: [facility] Address: [address] [place] [address] Performed By: #### 2 777-1 ####[facility] [id number] [place] [address] [place] SARS-CoV-2 RNA Resp Ql STEPHANIE+p robeon 07-11-2021 SARS-CoV-2 (COVID-19) RNA STEPHANIE+probe Ql (Resp) COVID 19 RESULT: SARS-CoV-2 (Agent of COVID-19) Not Detected by RT-PCR or equivalent method. This test has been authorized by FDA under an Emergency Use Authorization (EUA). Normal [facility] Comment on above: Performed By: #### 9 4500-6 ####[facility] LABCLIA [id number] [place] [address] [place] [facility] [place] STAPH AUREUS PCRon 2 S. aureus and MRSA panel STEPHANIE+probe (Nose) Normal Negative [facility] Comment on above: Order Comment: Speci men Type: SWAB OF INTERNAL NOSEOrdering Facility: [facility] Address: [address] [place] [address] Result Comment: Nega tive for Staphylococcus aureus by PCR. Negative for MRSA by PCR Performed By: #### S APCR ####[facility] LABCLIA [id number] [place] [address] [place] TYPE AND SCREENon 07-11-2021 ABO A Normal [facility] Comment on above: Order Comment: Speci men Type: BLOOD SPECIMENOrdering Facility: [facility] Address: [address] [place] [address] Performed By: #### T SCR ####CC MAIN BLOOD BANKCLIA [id number] [address] [place] HISTORICAL AB SCR STATUS Negative Normal [facility] Comment on above: Order Comment: Speci men Type: BLOOD SPECIMENOrdering Facility: [facility] Address: [address] [place] [address] Performed By: #### T SCR ####[facility] MA[facility] BLOOD BANKCLIA [id number] [place] [address] [place] Rh Nom (Bld) Positive Normal [facility] Comment on above: Order Comment: Speci men Type: BLOOD SPECIMENOrdering Facility: [facility] Address: [address] [place] [address] Performed By: #### T SCR ####[facility] MA[facility] BLOOD BANKCLIA [id number] [place] [address] [place] TYPE AND SCREEN EXPIRATION 07/14/2021 23:59 Normal [facility] Comment on above: Order Comment: Speci men Type: BLOOD SPECIMENOrdering Facility: [facility] Address: [address] [place] [address] Performed By: #### T SCR ####CC [facility] BLOOD BANKCLIA [id number] [place] [id number] [place] aPTT PPPon 07-11-2021 aPTT Coag (PPP) [Time] 27.0 s Normal 23.0-32.4 [facility] Comment on above: Order Comment: Speci men Type: BLOOD SPECIMENOrdering Facility: [facility] Address: [address] [place] [address] Performed By: #### 1 4979-9 ####[facility] LABCLIA [id number] [address] [place] CREATININE FINGERSTICKon Creatinine [Mass/Vol] 1.2 mg/dL High 0.55-1.02 [facility] Comment on above: Performed By: #### L 9100.0200 #### [facility] [address] [place], [place], [address] GFR/1.73 sq M.predicted among non-blacks MDRD (S/P/Bld) [Vol rate/Area] 45.0000 mL/min/{1.73_m2} Low >60 [facility] Comment on above: Performed By: #### L 9100.0200 #### [facility] [address] [place], [address] Orb Sella Post Fossa Ear W/C ONon 03-26-2021 Orb Sella Post Fossa Ear W/CON [facility] Services [address] [place] [address] Orb Sella Post Fossa Ear W/CON MR#: [id number] Acct: [id number] Name: ALBERTO BIANCHI Rep #: [id number] : 1940 F 80 From: King orr MD PCP: Dr. Papo Ayala, DO Status: REG CLI Study: Orb Sella Post Fossa Ear W/CON Date of Exam: 0 03/26/21 Exam# [id number] Ordering Dr: Reji Washington MD STUDY: CTA OF THE BRAIN REASON FOR EXAM: Female, 80 years old. 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 Data acquisition was obtained from the skull base through the vertex following intravenous administration of IV 75mL Isovue-370. MIP images were reconstructed from the axial data set. Post-processing of the angiographic images was performed, with multiplanar reformation and 3D reconstruction. Individualized dose optimization techniques were used for this CT. COMPARISON: None. 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 Normal bilateral petrous carotid arteries. Normal right cavernous carotid artery with a normal supraclinoid bifurcation. Normal left cavernous carotid artery with a normal supraclinoid bifurcation. Normal right A1 segments of the anterior cerebral artery. Normal left A1 segments of the anterior cerebral artery. Normal intact anterior communicating artery (ACOM). Normal bilateral A2 segments of the anterior cerebral arteries. Normal right M1 and M2 segments of the middle cerebral arteries, with a normal M1 bifurcation. Normal left M1 and M2 segments of the middle cerebral arteries, with a normal M1 bifurcation. Normal right posterior communicating artery (PCOM). Normal left posterior communicating artery (PCOM). Normal bilateral vertebral arteries. Normal basilar artery with a normal basilar bifurcation. The visualized bilateral superior cerebellar (SCA) arteries are normal. Normal bilateral P1, P2 and visualized P3 segments of the posterior cerebral arteries. There is no demonstrated aneurysm of the false pass of [place]gado. There is no demonstrated abnormality of the visualized brain. 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 Electronically Signed: King Faye MD at 11:16 EST , CC: Dr. Papo Ayala, DO; Dr. Reji Washington MD Retirement Assistant: Signed Normal [facility] Encounters Encounter Date Encounter Type Care Provider Facility Start: 01-07-2022 Telephone encounter Regan Danielle RN [facility] Comment on above: Cancel Angiogram for 01/11/22 Start: 12-17-2021 ambulatory Sharda Escalante APR, N.CNP Work Phone: [facility] Comment on above: Procedure (DSA with Dr. Mcgarry on 01/11/22) Start: 12-17-2021 Telephone encounter Sharda Escalante APRN.CNP Work Phone: [facility] Comment on above: Appointment (DSA) Start: 08-07-2021 End: 08-07-2021 ambulatory Sharda Escalante APRN.CNP Work Phone: [facility] Comment on above: Acquired left caroti d-cavernous fistula (Primary Dx) Start: 08-07-2021 End: 08-07-2021 Telemedicine consultation with patient Sharda Escalante APRN.CNP Work Phone: [facility] Start: 07-26-2021 End: 07-27-2021 ambulatory PAIGE HAMMONDS Facility:[facility] Start: 07-18-2021 Telephone encounter Christine Morales RN NOC Comment on above: Follow Up Phone Call (Post Discharge F/U attempt made. No answer.) Start: 07-11-2021 End: 07-14-2021 Evaluation and management of inpatient SHANIKA MULLEN Facility:[facility] Procedures Date Procedure Procedure Detail Performing Clinician Start: 07-26-2021 Adult depression scr eening assessment Sharda Escalante APRN.SCROLL MACHINE OPERATOR Work Phone: Start: 07-11-2021 Antibody screen [facility] Comment on above: Order Comment: Speci men Type: BLOOD SPECIMENOrdering Facility: [facility] Address: [address] [place] [address] [place] [address] Performed By: #### T SCR ####CC MAIN BLOOD BANKCLIA [id number] [address] [address] Plan of Treatment Date Care Activity Detail Author Start: 07-11-2024 DIABETES SCREEN DIABETES SCREEN [facility] Start: 07-26-2022 Adult depression screening assessment DEPRESSION SCREENING [facility] Start: 12-17-2021 End: 02-16-2022 Basic metabolic 2000 panel - Serum or Plasma BASIC METABOLIC PNL Lab Routine Carotid-cavernous fistula Expected: 12/17/2021, Expires: 02/16/2022 [facility] Work Phone: Comment on above: Expected: 12/17/2021 , Expires: 02/16/2022 Start: 12-17-2021 End: 02-16-2022 CBC panel - Blood by Automated count CBC Lab Routine Carotid-cavernous fistula Expected: 12/17/2021, Expires: 02/16/2022 [facility] Work Phone: Comment on above: Expected: 12/17/2021 , Expires: 02/16/2022 Start: 10-11-2021 Influenza vaccination [facility] Start: 02-10-2021 ADVANCE DIRECTIVE DISCUSSION ADVANCE DIRECTIVE DISCUSSION [facility] Start: 02-10-2021 DEPRESSION ASSESSMENT DEPRESSION ASS ESSMENT [facility] Start: 2006 BONE DENSITY BONE DENSITY [facility] Start: 2006 PNEUMOCOCCAL: 65+ (1 - PCV) PNEUMOCOCCAL: 65+ (1 - PCV) [facility] Start: 11-11-1991 SHINGRIX VACCINE (1 of 2) SHINGRIX VACCINE (1 of 2) [facility] Start: 1960 Urine microalbumin profile DTAP,TDAP,TD (1 - Tdap) [facility] Start: 1953 Adult depression screening assessment DEPRESSION SCREENING [facility] Start: 1946 COVID-19 VACCINE (#1) COVID-19 VACCI NE (#1) [facility] Start: 05-11-1942 COVID-19 VACCINE (#1) COVID-19 VACCI NE (#1) [facility] IR CEREBRAL ARCH & T HREE VESSEL IR CEREBRAL ARCH & THREE VESSEL Radiology Routine Carotid-cavernous fistula Ordered: 12/17/2021 [facility] Work Phone: Comment on above: Ordered: 12/17/2021 [facility] Social History Date Type Detail Facility Tobacco smoking stat [facility] Tobacco smoking consumption unknown [facility] Start: 1940 Sex Assigned At Not on file [facility] Start: 07-03-2021 End: 07-26-2021 Exposure to SARS-CoV-2 (event) Not sure [facility] Start: 07-26-2021 Tobacco smoking stat [facility] Never smoked tobacco [facility] Start: 07-26-2021 Tobacco use and exposure Smokeless t obacco non-user [facility] Start: 08-10-2021 Alcohol intake Lifetime non-d satish (finding) [facility] Start: 08-10-2021 History SDOH Alcohol Frequency 1 [facility] Medical Equipment Procedure Code Equipment Code Equipment Origin al Text Equipment Identifier Dates System Axium Chris rofx Latticefx 6mm .0125in [place] Pgla 20cm Embolization - [id number] Start: 07-13-2021 System Axium Chris rofx Latticefx 6mm .0125in [place] Pgla 20cm Embolization - [id number] Start: 07-13-2021 System Axium Chris rofx Latticefx 5mm .0125in 3d Pgla 15cm Embolization - [id number] Start: 07-13-2021 System Axium Chris rofx Latticefx 5mm .0125in [place] Pgla 15cm Embolization - [id number] Start: 07-13-2021 System Axium Chris rofx Latticefx 5mm .0125in [place] Pgla 15cm Embolization - [id number] Start: 07-13-2021 System Axium Chris rofx Latticefx 5mm .0125in [place] Pgla 15cm Embolization - [id number] Start: 07-13-2021 System Axium Chris rofx Latticefx 6mm .0125in [place] Pgla 20cm Embolization - [id number] Start: 07-13-2021 System Axium Chris rofx Latticefx 5mm .0125in [place] P[place] 20cm Embolization - [id number] Start: 07-13-2021 System Axium Chris rofx Latticefx 5mm .0125in [place] 20cm Embolization - [id number] Start: 07-13-2021 System Axium Chris rofx Latticefx 6mm .0125in [place] P[place] 20cm Embolization - [id number] Start: 07-13-2021 Clinical Notes 07-11-2021 to 01-07-2022 Telephone Encounter - Regan Danielle RN - 01/07/2022 10:48 AM ESTTelephone Encounter - Mayra Carter RN - 12/17/2021 2:35 PM ESTPatient Saul Escalante APRN.KEN - 08/07/2021 11:04 AM EDT Note Date & Type Note Facility 01-07-2022 Miscellaneous Notes Neuro IR nurse coordinator was told by family member that the angiogram scheduled for 01/11/22 was cancelled. I spoke with son Lyndsay, who confirmed they decided to cancel the angio for 01/11, had called to cancel (unknown who he called), and wanted to wait until after pt's eye appt next week to reschedule. Reviewed with Lyndsay the indication for the angiogram s/p symptomatic left carotid cavernous fistula coil embo 07/11/21 w/. Pt's vision is the best it's been in a long time Lyndsay stated. Asked Lyndsay to be sure to let us know about angio r/s decision (either yes or no) and he stated he would. If they do not want to r/s then check with Dr Hammonds about possible other imaging f/u. documented in this encounter [facility] 12-17-2021 Miscellaneous Notes Reached out to patient via phone to discuss scheduling DSA. Patient chose 01/11/[address] Mcgarry. This nurse will mail info on procedure to patient. Patient denies allergy to contrast dye, reports she is not diabetic, and does not currently take any medications. Will mail lab orders as well for CBC and CMP. Gave office number if any questions arise. Mayra Carter RN documented in this encounter [facility] 08-10-2021 Instructions Sharda Escalante APRN.CNP - 08/10/2021 2:11 PM EDT Diagnostic cerebral angiogram due January 2022. Our office will contact you 6-8 weeks prior to schedule. If you do not hear from us, please call [phone] or send a [employer] message to connect with one of our caregivers. Call 311 right away if you or someone else has any of these stroke symptoms: Sudden numbness or weakness in the face, arm, or leg, especially on one side of the body. Sudden confusion, trouble speaking, or difficulty understanding speech. Sudden trouble seeing in one or both eyes. Sudden trouble walking, dizziness, loss of balance, or lack of coordination. Sudden severe headache with no known cause. documented in this encounter [facility] 08-07-2021 Note HNO ID: [id number] Author: Sharda Escalante APRN.CNP Service: ? Author Type: Nurse Practitioner Type: Progress Notes Filed: 08/10/2021 2:13 PM Note Text: [facility] Post-Op Follow Up Visit Patient consents to this virtual visit using UYA100 video visit. The visit required patient-provider interaction for the medical decision making as documented below. Alberto Bianchi [facility]#: [id number] Date of Service: 08/07/2021 Primary Care Provider: No primary care provider on file. FOLLOW UP VISIT Alberto Bianchi is a 80 year old female, who presents for neurologic evaluation following infraorbital approach for left carotid cavernous fistula coil embolization and inferior orbital vein ligation 07/13/2021. This is 4 - 6 week PCP: No primary care provider on file. 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 On 07/12/2021, she had unsuccessful attempt to embolize left indirect carotid-cavernous fistula via left IPSS and left facial vein. On 07/13/2021, she was taken to OR for infraorbital approach for left inferior orbital vein cut down for indirect CCF embolization and subsequent vein ligation. Surgery and remainder of hospitalization was uneventful, discharged on 07/14. She returns for follow-up after discharge. Interval history: - Recovering well since surgery, expresses no issues or concerns. - No neurologic symptoms concerning for stroke or seizure. - Blood shot eyes and vision improving. Evaluated at [facility] on 07/30, exam was about as good as can be. - No pain or headaches. - No wound healing issues. - No AP/AC use. - No home monitoring. No history of HTN. - No tobacco use. - Accompanied by neighbor/box truck driver, who is also assisting with mobile device and video visit. Handedness: right-handed Hypertension NA Coronary Artery Disease NA Diabetes NA Obesity NA Dyslipidemia NA Tobacco Use (Please Update Smoking History) NA Stroke NA Intracranial Aneurysm NA Past Medical History: ACTIVE PROBLEM LIST Carotid-Cavernous Fistula Decreased Vision of Left Eye No past surgical history on file. Allergies: Patient has no known allergies. Medications: Current Outpatient Medications Medication Sig - acetaminophen (TYLENOL) 325 mg tablet 2 tablets by ORAL/FEEDING TUBE route every 4 hours as needed for pain. No current facility-administered medications for this visit. Social History Tobacco Use - Smoking status: Never Smoker - Smokeless tobacco: Never Used Substance Use Topics - Alcohol use: Not on file - Drug use: Not on file Lives with and son lives across the lawn. Family History: Subarachnoid hemorrhage: None Aneurysms: None Stroke: None Vascular malformations: None Other neurologic diseases: None Review of Systems Constitutional: Negative Eyes: Negative HENT: Negative Cardiovascular: Negative Respiratory: Negative GI: Negative : Negative Musculoskeletal: Negative Integumentary: Negative Heme/Lymph: Negative Allergy/Immunologic: Negative Neurologic: Negative Psychiatric: Negative Patient Entered Questionnaires PROMIS/NeuroQoL Score Percentiles Physical Health 07/26/2021 Physical Function Percentile 4 Sleep Percentile 54 Fatigue Percentile 10 Pain Interference Percentile 84 PROMIS SOCIAL ROLE SCORE 07/26/2021 Social Role Satisfaction Percentile 27* Mental Health 07/26/2021 NeuroQol Cognitive Function Percentile 27* General Self-Efficacy Percentile 82 PROMIS Global Health Scale 07/26/2021 Physical Health Percentile 78 Mental Health Percentile 82 Percentiles provide an indication of how a patient's score ranks in relation to the [place] general population. > 31st percentile is within normal limits or better * < 31st percentile is at least ? SD worse than population, which may be clinically relevant < 16th percentile is at least 1 SD worse than population and warrants attention Depression Screening: PHQ-9 07/26/2021 Score 5 Self-Harm Response 0 PHQ-9 Scores: PHQ-9 Self-Harm (Item 9) Response: 0 - 9 No to Mild depression 0 - Not at all 10 - 14 Moderate depression 1 - Several Days > 15 Severe depression 2 - More than half the days 3 - Nearly every day Sleep Apnea Probability Score 07/26/2021 Sleep Apnea Screen V2 40.47 (Sleep study not recommended) PHYSICAL EXAMINATION There were no vitals taken for this visit. Limited in setting of video visit General: Pleasant, well-developed, well-nourished, in no acute distress. HEENT: Normocephalic, atraumatic. Lungs: Respirations even and un (more content not included)... [facility] 08-07-2021 History of Present illness Narrative [facility] Post-Op Follow Up Visit Patient consents to this virtual visit using UYA100 video visit. The visit required patient-provider interaction for the medical decision making as documented below. Alberto Bianchi [facility]#: [id number] Date of Service: 08/07/2021 Primary Care Provider: No primary care provider on file. FOLLOW UP VISIT Alberto Bianchi is a 80 year old female, who presents for neurologic evaluation following infraorbital approach for left carotid cavernous fistula coil embolization and inferior orbital vein ligation 07/13/2021. This is 4 - 6 week PCP: No primary care provider on file. 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 On 07/12/2021, she had unsuccessful attempt to embolize left indirect carotid-cavernous fistula via left IPSS and left facial vein. On 07/13/2021, she was taken to OR for infraorbital approach for left inferior orbital vein cut down for indirect CCF embolization and subsequent vein ligation. Surgery and remainder of hospitalization was uneventful, discharged on 07/14. She returns for follow-up after discharge. Interval history: - Recovering well since surgery, expresses no issues or concerns. - No neurologic symptoms concerning for stroke or seizure. - Blood shot eyes and vision improving. Evaluated at [facility] on 07/30, exam was about as good as can be. - No pain or headaches. - No wound healing issues. - No AP/AC use. - No home monitoring. No history of HTN. - No tobacco use. - Accompanied by neighbor/box truck driver, who is also assisting with mobile device and video visit. Handedness: right-handed Hypertension NA Coronary Artery Disease NA Diabetes NA Obesity NA Dyslipidemia NA Tobacco Use (Please Update Smoking History) NA Stroke NA Intracranial Aneurysm NA Past Medical History: ACTIVE PROBLEM LIST Carotid-Cavernous Fistula Decreased Vision of Left Eye No past surgical history on file. Allergies: Patient has no known allergies. Medications: Current Outpatient Medications Medication Sig acetaminophen (TYLENOL) 325 mg tablet 2 tablets by ORAL/FEEDING TUBE route every 4 hours as needed for pain. No current facility-administered medications for this visit. Social History Tobacco Use Smoking status: Never Smoker Smokeless tobacco: Never Used Substance Use Topics Alcohol use: Not on file Drug use: Not on file Lives with and son lives across the lawn. Family History: Subarachnoid hemorrhage: None Aneurysms: None Stroke: None Vascular malformations: None Other neurologic diseases: None Review of Systems Constitutional: Negative Eyes: Negative HENT: Negative Cardiovascular: Negative Respiratory: Negative GI: Negative : Negative Musculoskeletal: Negative Integumentary: Negative Heme/Lymph: Negative Allergy/Immunologic: Negative Neurologic: Negative Psychiatric: Negative Patient Entered Questionnaires PROMIS/NeuroQoL Score Percentiles Physical Health 07/26/2021 Physical Function Percentile 4 Sleep Percentile 54 Fatigue Percentile 10 Pain Interference Percentile 84 PROMIS SOCIAL ROLE SCORE 07/26/2021 Social Role Satisfaction Percentile 27* Mental Health 07/26/2021 NeuroQol Cognitive Function Percentile 27* General Self-Efficacy Percentile 82 PROMIS Global Health Scale 07/26/2021 Physical Health Percentile 78 Mental Health Percentile 82 Percentiles provide an indication of how a patient's score ranks in relation to the [place] general population. > 31st percentile is within normal limits or better * < 31st percentile is at least SD worse than population, which may be clinically relevant < 16th percentile is at least 1 SD worse than population and warrants attention Depression Screening: PHQ-9 07/26/2021 Score 5 Self-Harm Response 0 PHQ-9 Scores: PHQ-9 Self-Harm (Item 9) Response: 0 - 9 No to Mild depression 0 - Not at all 10 - 14 Moderate depression 1 - Several Days > 15 Severe depression 2 - More than half the days 3 - Nearly every day Sleep Apnea Probability Score 07/26/2021 Sleep Apnea Screen V2 40.47 (Sleep study not recommended) PHYSICAL EXAMINATION There were no vitals taken for this visit. Limited in setting of video visit General: Pleasant, well-developed, well-nourished, in no acute distress. HEENT: Normocephalic, atraumatic. Lungs: Respirations even and unlabored. Neurological: Awake, alert, oriented to person, place, and time. Speech fluent, no dysarthria. Good attention and insight into illness. Cranial Nerves: Wears glasses. Sclera white. Extraocular movements grossly intact. Facial movements appear normal and symmetric. Motor: Moves upper extremities freely. IMAGING No new imaging to review today. DSA (07/13/2021): Successful coil-embolization of the patient's indirect carotid cavernous fistula via cutdown and direct surgical puncture of the left inferior ophthalmic vein. There is no residual shunting noted with complete resolution of the patient's fistula. DSA (07/12/2021): Unsuccessful attempts at transvenous embolization of the patient's indirect carotid cavernous fistula. DSA (07/11/2021): Indirect left carotid-cavernous fistula from left meningohypophyseal branches and small right carotid to cavernous sinus small feeders. Early venous filling of the intercavernous sinus, left posterior cavernous sinus, an enlarged left inferior orbital vein and a small left facial vein are demonstrated. Bilateral inferior petrosal sinuses are not visualized. Severe proximal cervical large vessel tortuosity. LABS N/A IMPRESSION & PLAN 80 yof with PMH b/l cataract surgery 2006 with scar revision in 03/2021 who presented with one week of worsening vision and diplopia and found to have indirect left carotid-cavernous fistula, now s/p infraorbital approach for left inferior orbital vein cut down for indirect CCF embolization and subsequent vein ligation 07/13/2021 after unsuccessful attempt at transvenous embolization - recovering well after surgery and embolization. - diagnostic cerebral angiogram 01/2022 to monitor left carotid-cavernous fistula. - continue follow-up with lithographic proofer, planned 01/2022. - reviewed wound care precautions and S/S warranting emergent care. All questions/concerns addressed and patient is agreeable to this plan. I spent a total of 25 minutes on the date of the service which included preparing to see the patient, [id number] patient care, completing clinical documentation, obtaining and/or reviewing separately obtained history, performing a medically appropriate examination, counseling and educating the patient/family/caregiver, communicating with other HCPs (not separately reported) and care coordination (not separately reported). SIGNATURE Sharda Escalante APRN.CNP August 07, 2021 documented in this encounter [facility] 07-26-2021 Note HNO ID: [id number] Author: Paola Dailey RN Service: ? Author Type: Registered Nurse Type: Progress Notes Filed: 07/26/2021 1:32 PM Note Text: [facility] Post-Op Follow Up Visit Alberto Bianchi [facility]#: [id number] Date of Service: 07/26/2021 Primary Care Provider: No primary care provider on file. Symptomatic Carotid cavernous fistula s/p direct venous access coil embo 07/13/[address] Mims with Dr. Hammonds assisting f/up with Dr. Hammonds's office FOLLOW UP VISIT Alberto Bianchi is a 80 year old female, who presents for neurologic evaluation following Infraorbital approach to obtain venous access for CCF embolization and vein ligation of left carotid-cavernous fistula on 07/13/2021. This is 2 week PCP: No primary care provider on file. Referring Provider: Dr. Paige Hammonds Reason for Visit: wound check Hypertension NA Coronary Artery Disease NA Diabetes NA Obesity NA Dyslipidemia NA Tobacco Use (Please Update Smoking History) NA Stroke NA Intracranial Aneurysm NA Past Medical History: ACTIVE PROBLEM LIST Carotid-Cavernous Fistula Decreased Vision of Left Eye No past surgical history on file. Allergies: Patient has no known allergies. Medications: Current Outpatient Medications Medication Sig - acetaminophen (TYLENOL) 325 mg tablet 2 tablets by ORAL/FEEDING TUBE route every 4 hours as needed for pain. No current facility-administered medications for this visit. Social History Tobacco Use - Smoking status: Never Smoker - Smokeless tobacco: Never Used Substance Use Topics - Alcohol use: Not on file - Drug use: Not on file Review of Systems Neurological: Positive for weakness. Negative for aphasia, dizziness, headaches, memory difficulty, numbness/tingling and slurred speech. Patient Entered Questionnaires PROMIS/NeuroQoL Score Percentiles Physical Health 07/26/2021 Physical Function Percentile 4 Sleep Percentile 54 Fatigue Percentile 10 Pain Interference Percentile 84 PROMIS SOCIAL ROLE SCORE 07/26/2021 Social Role Satisfaction Percentile 27* Mental Health 07/26/2021 NeuroQol Cognitive Function Percentile 27* General Self-Efficacy Percentile 82 PROMIS Global Health Scale 07/26/2021 Physical Health Percentile 78 Mental Health Percentile 82 Percentiles provide an indication of how a patient's score ranks in relation to the [place] general population. > 31st percentile is within normal limits or better * < 31st percentile is at least ? SD worse than population, which may be clinically relevant < 16th percentile is at least 1 SD worse than population and warrants attention Depression Screening: PHQ-9 07/26/2021 Score 5 Self-Harm Response 0 PHQ-9 Scores: PHQ-9 Self-Harm (Item 9) Response: 0 - 9 No to Mild depression 0 - Not at all 10 - 14 Moderate depression 1 - Several Days > 15 Severe depression 2 - More than half the days 3 - Nearly every day Sleep Apnea Probability Score 07/26/2021 Sleep Apnea Screen V2 40.47 (Sleep study not recommended) Paola Dailey RN PHYSICAL EXAMINATION BP 136/67 (BP Site: Right Arm, BP Position: Sitting, BP Cuff Size: Regular Adult) Pulse 82 SpO2 96% Left periorbital incision clean, dry, and sutures intact. No redness, swelling, or drainage present. Stroke Mechanism and Scales IMPRESSION Sutures removed under the supervision of Dr. Hammonds and alla. Discussed continued wound care education and instructions and when to report for emergent care. Return to clinic for follow up appointment with Sharda Escalante Np on 08/07/21 for virtual visit. SIGNATURE Paola Dailey RN [facility] 07-14-2021 Note HNO ID: [id number] Author: Interface Note Service: ? Author Type: ? Type: Progress Notes Filed: 07/16/2021 8:11 AM Note Text: Epic Scheduled Downtime: 07/14/2021 1:00:00 AM to 07/14/2021 2:35:00 AM [facility] 07-13-2021 Note HNO ID: [id number] Author: Cailin Link APRN.SCROLL MACHINE OPERATOR Service: Neurosurgery Author Type: Nurse Practitioner Type: Progress Notes Filed: 07/13/2021 5:00 PM Note Text: SERVICE DATE: 07/13/2021 SERVICE TIME: 5:00 PM NEUROSURGERY PROGRESS NOTE Before 7 AM, after 6 PM and weekends please page [phone] or night/weekend OSMEL associate professor of education. Between 7 AM and 9 AM please call/page Elizabeth Geiger and between 4PM and 6PM call/page Cailin Link. See care team for day assignment. Subjective INTERVAL HPI: No overnight events. Patient is s/p embolization of CCF today. She reports mild pain but otherwise is neurologically stable. Objective EXAM: 07/13/21 1400 07/13/21 1415 07/13/21 1430 07/13/21 1515 BP: 127/60 127/60 118/55 128/61 Pulse: 76 81 78 83 Resp: 12 21 13 15 Temp: 36.9 ?C (98.4 ?F) TempSrc: Temporal SpO2: 99% 99% 98% 98% Weight: Intake/Output Summary (Last 24 hours) at 07/13/2021 1623 Last data filed at 07/13/2021 1415 Gross per 24 hour Intake 1950 ml Output 3550 ml Net -1600 ml [id number] AO to self, place, time. Speech clear PERRL, OD EOM intact, OS partial CN6 palsy. OD VFF, counts fingers, OS visual cut in superior quadrants, counts fingers in inferior quadrants. FS, TM BUE 5/5 BLE 5/5 No drift SILT Clean, dry, intact right radial site, distal pulse palpable Clean, dry, intact right femoral site, distal pulse palpable Clean, dry, intact left inferior orbital incision DATA: Diagnostic tests reviewed for today's visit: DSA 1. Out of bed and ambulating: Yes Needs PT or OT Evaluation: No 2. Central line present? No 3. Continued need for urinary catheter? Not Applicable 4. Nutrition: PO- Yes. 5. Restraints No. 6. 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 07/11/2021 Diagnostic angiogram: 1. 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 Venous filling of the intercavernous sinus, left posterior cavernous sinus, left IOV and left facial vein are demonstrated. Bilateral inferior petrosal sinuses are not visualized, possibly occluded 2. Severe proximal cervical large vessel tortuosity, limiting catheterization * Carotid-cavernous fistula? (present on admission) 07/11/2021?DSA 07/12/2021 Unsuccessful attempt to embo 07/13/21 ?Infraorbital approach to obtain direct venous access for CCF coil embolization and inferior orbital vein ligation Decadron for 48 hours Ambulate/ OOB Ophthalmology follow up in 1 week (arranged) Anticipate DC 1-2 days post procedure pending pain control/ ambulation Decreased vision of left eye? (present on admission) Assessment: due to CCF PLAN: Evaluated by ophthalmology Follow in in 1 week post op Medication and Non-Pharmacologic VTE Prophylaxis/Anticoagulants 07/12/211999 vte current anticoag therapy (co,oh) 06/02/22 2000 graduated compression stockings (co,az) 07/12/211999 activity - mobilize patient (co,az) 07/11/21 1000 vte pharmacologic prophylaxis contraindicated (co,oh) 07/11/21 1000 pneumatic compression stockings ([place] VTE Prophylaxis: VTE prophylaxis appropriate Plan of care discussed with: Provider, RN, Patient SIGNATURE: Cailin Link APRN.CNP PATIENT NAME: Alberto Bianchi DATE: July 13, 2021 TIME: 5:00 PM [facility] 07-13-2021 Note HNO ID: [id number] Author: Kaley Sorenson MD Service: Neurosurgery Author Type: Resident Type: Progress Notes Filed: 07/13/2021 12:01 PM Note Text: Neurosurgery Post Angio Check Interval HPI: Infraorbital approach to obtain venous access for CCF coil embolization and inferior orbital vein ligation ? Objective: 07/13/21 0100 07/13/21 0102 07/13/21 0400 07/13/21 0422 BP: 109/57 109/57 (!) 114/47 Pulse: 92 92 82 Resp: 17 17 17 17 Temp: 36.5 ?C (97.7 ?F) 36.5 ?C (97.7 ?F) 36.9 ?C (98.4 ?F) TempSrc: Oral Oral Oral SpO2: 95% 95% 96% Weight: EXAM: AOX3 PERRL Partial 6th palsy on L Counts fingers in L eye (unable to test further) FS, TM ? No drift RUE 5/5 RLE 5/5 LUE 5/5 LLE 5/5 SILT ? Radial pulse intact, TR band dry A/P: 80 year old right-handed female with PMHx b/l cataracts surgery in 2006 with recent scar revision in 03/2021, presenting with?OSH CTA c/f bilateral CCF in setting of worsening vision?and diplopia?over past?1 week.? 07/11/2021 DSA 07/12/2021 Unsuccessful attempt to embo 07/13/21 Infraorbital approach to obtain direct venous access for CCF coil embolization and inferior orbital vein ligation PACU to SDU Ancef x24 hrs Dex 4q6 x48 hrs SSI PPI Bacitracin to incision SBP <160 SCDs, [facility] Kaley Sorenson MD Neurosurgery, PGY-4 Pager # [phone] July 13, 2021 Please page [phone] after 6 PM and on weekends [facility] 07-13-2021 Note HNO ID: [id number] Author: Anastasia Bhandari APRN.SENIOR INVESTMENT MANAGER Service: ? Author Type: Nurse Rivet Hole Machine Operator Type: Anesthesia Procedure Notes Filed: 07/13/2021 9:22 AM Note Text: ANESTHESIOLOGY PROCEDURE NOTE PIV General Information Procedure Start Time/Medication Administration: 07/13/2021 8:41 AM Patient Location: OR Staffing SENIOR INVESTMENT MANAGER: Anastasia Bhandari APRN.SENIOR INVESTMENT MANAGER Performed by: BHASKAR Preparation Sterility Preparation: hand hygiene performed prior to procedure, surgical cap used, mask used, skin prep agent completely dried prior to procedure Site Prep: alcohol Procedure Details Indication: need for IV access Needle Size/Type: 18 gauge angiocath Orientation: Left Location: Foot Imaging Guidance Used: No SIGNATURE: Nunu Dewey APRN.SENIOR INVESTMENT MANAGER PATIENT NAME: Alberto Bianchi DATE: July 13, 2021 TIME: 9:03 AM CSN: [id number] [facility] 07-13-2021 Note HNO ID: [id number] Author: Anastasia Bhandari APRN.SENIOR INVESTMENT MANAGER Service: ? Author Type: Nurse Rivet Hole Machine Operator Type: Anesthesia Procedure Notes Filed: 07/13/2021 9:18 AM Note Text: ANESTHESIOLOGY PROCEDURE NOTE Airway General Information Procedure Start Time/Medication Administration: 07/13/2021 8:09 AM Patient location during procedure: OR Timeout Performed Pre-procedure: timeout performed Consent Obtained: Yes Patient identity confirmed: arm band, patient sedated or unresponsive and care wallpaper remover steam Staffing SENIOR INVESTMENT MANAGER: Anastasia Bhandari APRN.SENIOR INVESTMENT MANAGER Performed by: BHASKAR Indications and Patient Condition Preoxygenated: yes Patient position: sniffing Difficult Mask: No Indications for airway management: anesthesia and airway protection anesthesia circuit Method: asleep Cricoid Pressure: No Airway Accessory: oral airway Final Airway Details Final airway type: endotracheal airway Final Endotracheal Airway: ETT Cuffed: yes Successful intubation technique: video laryngoscopy Devices used: Bizible Endotracheal tube insertion site: oral Blade size: #3 ETT size (mm): 7.0 Measured from: lips Measurement (cm): 21 Placement verified by: capnometry Cormack-Lehane Classification: grade I - full view of glottis Number of attempts at approach: 1 Failed airway: no Unrecognized esophageal intubation: no Airway not difficult SIGNATURE: Anastasia Bhandari APRN.CRNA PATIENT NAME: Alberto Bianchi DATE: July 13, 2021 TIME: 8:25 AM CSN: [id number] [facility] 07-13-2021 Note HNO ID: [id number] Author: Anastasia Bhandari APRN.CRNA Service: ? Author Type: Nurse Rivet Hole Machine Operator Type: Anesthesia Procedure Notes Filed: 07/13/2021 9:19 AM Note Text: ANESTHESIOLOGY PROCEDURE NOTE PIV General Information Procedure Start Time/Medication Administration: 07/13/2021 8:21 AM Patient Location: OR Staffing Anesthesiologist: Jerry Genao MD Performed by: anesthesiologist Preparation Sterility Preparation: hand hygiene performed prior to procedure, surgical cap used, mask used, skin prep agent completely dried prior to procedure Site Prep: alcohol Procedure Details Indication: need for IV access Needle Size/Type: 16 gauge angiocath Orientation: Left Location: Wrist Imaging Guidance Used: No SIGNATURE: Anastasia Bhandari APRN.CRNA PATIENT NAME: Alberto Bianchi DATE: July 13, 2021 TIME: 8:21 AM CSN: [id number] [facility] 07-13-2021 Note HNO ID: [id number] Author: Anastasia Bhandari APRN.SENIOR INVESTMENT MANAGER Service: ? Author Type: Nurse Rivet Hole Machine Operator Type: Anesthesia Procedure Notes Filed: 07/13/2021 9:17 AM Note Text: ANESTHESIOLOGY PROCEDURE NOTE A-Line General Information Procedure Start Time/Medication Administration: 07/13/2021 8:17 AM Patient location during procedure: OR Timeout Performed Pre-procedure: timeout performed Indication: continuous blood pressure monitoring Staffing Anesthesiologist: Jerry Genao MD Performed by: anesthesiologist Preparation Sterility Preparation: sterile gloves, drapes, and procedure tray, gown used during line insertion, surgical cap used, mask used, sterile drape used during line insertion, skin prep agent completely dried prior to procedure Site Prep: chlorhexidine Procedure Details Catheter Size: 22 G Catheter Length: 5.25 in Micropuncture Kit Used: No Guidewire Used: Yes Guidewire Removed Intact: YesLaterality: left Site: radial artery Ultrasound Guided: Yes Image in Chart: No Sites: potential access sites evaluated, selected vessel patent, concurrent real time ultrasound visualization of vascular needle entry Vessel: target vessel identified and guidewire advanced into vesselLine Secured: occlusive biodressing Events Events: patient tolerated procedure well with no complications SIGNATURE: Anastasia Bhandari APRN.SENIOR INVESTMENT MANAGER PATIENT NAME: Alberto Bianchi DATE: July 13, 2021 TIME: 8:18 AM CSN: [id number] [facility] 07-12-2021 Note HNO ID: [id number] Author: Last Ambriz MD Service: Neurosurgery Author Type: Resident Type: Progress Notes Filed: 07/12/2021 5:50 PM Note Text: Neurosurgery Post-Operative Note Patient: Alberto Bianchi Interval HPI Postop check Objective Vitals 07/12/21 0517 07/12/21 0915 07/12/21 1700 07/12/21 1715 BP: 122/58 125/62 126/62 119/58 Pulse: 71 69 94 81 Resp: 18 16 12 14 Temp: 36.5 ?C (97.7 ?F) 36.6 ?C (97.9 ?F) 36.1 ?C (97 ?F) TempSrc: Oral Oral Temporal SpO2: 97% 96% 100% 99% Weight: Exam AAOx3 PERRL OS - conjunctiva injected - partial lateral gaze palsy OD - EOMI intact Facial sensation intact FS, TM Speech intact Motor strength 5/5 x 4 ? Pulses palpable, right wrist c/d/i Assessment/Plan 80 year old right-handed female with PMHx b/l cataracts surgery in 2006 with recent scar revision in 03/2021, presenting with?OSH CTA c/f bilateral CCF in setting of worsening vision?and diplopia?over past?1 week.?? 07/11/2021 DSA 07/12/2021 Unsuccessful attempt to embo -NPO at midnight -Plan for second attempt tomorrow via different method -Okay for diet today Last Ambriz MD PGY-3, Neurological Surgery Pager: [phone] 5:33 PM 07/12/21 Please page [phone] after 6pm or if unable to reach [facility] 07-12-2021 Note HNO ID: [id number] Author: Mauricio Duque APRN.SENIOR INVESTMENT MANAGER Service: ? Author Type: Nurse Rivet Hole Machine Operator Type: Anesthesia Procedure Notes Filed: 07/12/2021 11:39 AM Note Text: ANESTHESIOLOGY PROCEDURE NOTE A-Line General Information Procedure Start Time/Medication Administration: 07/12/2021 11:10 AM Patient location during procedure: OR Timeout Performed Pre-procedure: timeout performed Indication: continuous blood pressure monitoring and blood sampling needed Staffing SENIOR INVESTMENT MANAGER: Mauricio Duque APRN.SENIOR INVESTMENT MANAGER Performed by: BHASKAR Preparation Sterility Preparation: hand hygiene performed prior to procedure, sterile gloves, drapes, and procedure tray, surgical cap used, mask used, sterile drape used during line insertion, skin prep agent completely dried prior to procedure Sterility Technique Not Completely Performed Due to Extreme Emergency: No Site Prep: Chloraprep Procedure Details Catheter Size: 20 G Catheter Length: 5.25 in Micropuncture Kit Used: No Guidewire Used: Yes Guidewire Removed Intact: YesLaterality: left Site: radial artery Ultrasound Guided: NoLine Secured: tape and occlusive biodressing Events Events: patient tolerated procedure well with no complications SIGNATURE: Mauricio Duque APRN.SENIOR INVESTMENT MANAGER PATIENT NAME: Alberto Bianchi DATE: July 12, 2021 TIME: 11:38 AM CSN: [id number] [facility] 07-12-2021 Note HNO ID: [id number] Author: Mauricio Duque APRN.SENIOR INVESTMENT MANAGER Service: ? Author Type: Nurse Rivet Hole Machine Operator Type: Anesthesia Procedure Notes Filed: 07/12/2021 11:37 AM Note Text: ANESTHESIOLOGY PROCEDURE NOTE Airway General Information Procedure Start Time/Medication Administration: 07/12/2021 11:03 AM Patient location during procedure: OR Timeout Performed Pre-procedure: timeout performed Consent Obtained: Yes Patient identity confirmed: arm band, care wallpaper remover steam and patient Staffing Anesthesiologist: Satish Dela Cruz MD Performed by: anesthesiologist Indications and Patient Condition Preoxygenated: yes Patient position: sniffing Manual In-Line Stabilization: No Difficult Mask: No Indications for airway management: anesthesia anesthesia circuit Method: asleep Cricoid Pressure: No Final Airway Details Final airway type: endotracheal airway Final Endotracheal Airway: ETT Cuffed: yes Successful intubation technique: video laryngoscopy Devices used: Bizible Endotracheal tube insertion site: oral Blade size: #4 ETT size (mm): 7.0 Measured from: lips Measurement (cm): 20 Placement verified by: capnometry Cormack-Lehane Classification: grade I - full view of glottis Number of attempts at approach: 1 Airway trauma: none. Failed airway: no Unrecognized esophageal intubation: no Airway not difficult SIGNATURE: Mauricio Duque APRN.SENIOR INVESTMENT MANAGER PATIENT NAME: Alberto Bianchi DATE: July 12, 2021 TIME: 11:37 AM CSN: [id number] [facility] 07-12-2021 Note HNO ID: [id number] Author: Cailin Link APRN.SCROLL MACHINE OPERATOR Service: Neurosurgery Author Type: Nurse Practitioner Type: Progress Notes Filed: 07/12/2021 11:25 AM Note Text: SERVICE DATE: 07/12/2021 SERVICE TIME: 11:24 AM NEUROSURGERY PROGRESS NOTE Before 7 AM, after 6 PM and weekends please page [phone] or night/weekend OSMEL associate professor of education. Between 7 AM and 9 AM please call/page Elizabeth Geiger and between 4PM and 6PM call/page Cailin Link. See care team for day assignment. Subjective INTERVAL HPI: No overnight events. Patient report stable vision and denies any other pain or headache. She is anxious to get to her angiogram today and start recovering. She remains neurologically stable with no new deficits. Objective EXAM: 07/11/212 07/12/21 0119 07/12/21 0517 07/12/21 0915 BP: 122/62 115/60 122/58 125/62 Pulse: 80 86 71 69 Resp: 17 17 18 16 Temp: 37 ?C (98.6 ?F) 36.8 ?C (98.2 ?F) 36.5 ?C (97.7 ?F) 36.6 ?C (97.9 ?F) TempSrc: Oral Oral Oral Oral SpO2: 97% 95% 97% 96% Weight: Intake/Output Summary (Last 24 hours) at 07/12/2021 1121 Last data filed at 07/12/2021 0600 Gross per 24 hour Intake 300 ml Output 0 ml Net 300 ml [id number] AO to self, place, time. Speech clear PERRL, OD EOM intact, OS partial CN6 palsy. Decreased visual acuity. FS, TM BUE 5/5 BLE 5/5 No drift SILT Clean, dry, intact right radial site, distal pulse palpable DATA: Diagnostic tests reviewed for today's visit: DSA 1. Out of bed and ambulating: Yes Needs PT or OT Evaluation: No 2. Central line present? No 3. Continued need for urinary catheter? Not Applicable 4. Nutrition: PO- Yes. 5. Restraints No. 6. 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 07/11/2021 Diagnostic angiogram: 1. 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 Venous filling of the intercavernous sinus, left posterior cavernous sinus, left IOV and left facial vein are demonstrated. Bilateral inferior petrosal sinuses are not visualized, possibly occluded 2. Severe proximal cervical large vessel tortuosity, limiting catheterization * Carotid-cavernous fistula? (present on admission) Assessment: 07/11/2021 as noted on diagnostic angiogram PLAN: Plan for endovascular treatment today SDU post procedure Ambulate/ OOB Plan for discharge 1-2 days post procedure pending ambulation, pain control Medication and Non-Pharmacologic VTE Prophylaxis/Anticoagulants 07/11/21 1000 vte pharmacologic prophylaxis contraindicated (co,oh) 07/11/21 1000 pneumatic compression stockings (co,az) 07/11/21 1000 activity - mobilize patient (co,az) VTE Prophylaxis: VTE prophylaxis appropriate Plan of care discussed with: Provider, RN, Patient SIGNATURE: Cailin Link APRN.CNP PATIENT NAME: Alberto Bianchi DATE: July 12, 2021 TIME: 11:24 AM [facility] 07-11-2021 Note HNO ID: [id number] Author: Nate Ferguson MD Service: Neurosurgery Author Type: Resident Type: Progress Notes Filed: 07/11/2021 6:43 PM Note Text: Neurosurgery PAC Note Interval HPI: S/p Angiogram Objective: 07/11/21 1500 07/11/21 1515 07/11/21 1545 07/11/21 1645 BP: 133/63 136/65 139/65 121/59 Pulse: 63 72 72 91 Resp: 16 14 16 16 Temp: 37.1 ?C (98.7 ?F) TempSrc: Oral SpO2: 98% 98% 98% 98% Weight: EXAM: AAOx3 PERRL, sluggish this morning (dilated for exam on 3:20am) OS - conjunctiva injected - partial lateral gaze palsy OD - EOMI intact Facial sensation intact FS, TM Speech intact No drift Motor strength 5/5 x 4 Pulses palpable, right wrist c/d/i A/P: 80 year old y/o female s/p 07/11/21: DSA - Neuro as above - post-angio protocol - plan for embolization attempt in AM - NPO @ midnight, preop labs - SCDs, hold [facility] Nate Ferguson MD Neurosurgery, PGY-4 Pager# [phone] July 11, 2021 5:58 PM Please page [phone] during normal working hours and on weekends [facility] 07-11-2021 Note HNO ID: [id number] Author: Last Ambriz MD Service: Neurosurgery Author Type: Resident Type: Progress Notes Filed: 07/11/2021 8:39 AM Note Text: Neurosurgery Inpatient Progress Note Interval HPI: No acute events overnight, pending RNF Objective: 07/10/21204407/11/21 0215 07/11/21 0520 BP: 175/86 Pulse: 84 78 67 Resp: 16 16 16 Temp: 36.5 ?C (97.7 ?F) TempSrc: Temporal SpO2: 98% 99% 98% Weight: 70.3 kg (155 lb) No intake or output data in the 24 hours ending 07/11/21 0838 EXAM: AAOx3 PERRL, sluggish this morning (dilated for exam on 3:20am) OS - conjunctiva injected - partial lateral gaze palsy OD - EOMI intact Facial sensation intact FS, TM Speech intact No drift Motor strength 5/5 x 4 SILT A/P: 80 year old right-handed female with PMHx b/l cataracts surgery in 2006 with recent scar revision in 03/2021, presenting with OSH CTA c/f bilateral CCF in setting of worsening vision and diplopia over past 1 week. ? - no indication for acute neurosurgical intervention at this time - CTA head and neck - reviewed - RNF bed pending - plan for diagnostic angiogram today - appreciate ophtho recs - keep NPO - SCDs Staff: Dr. Mullen Signature: Last Ambriz MD PGY-3, Neurological Surgery Pager: [phone] 8:38 AM 07/11/21 Please page [phone] after 6pm or if unable to reach [facility] Evaluation note Diagnosis Acquired left carotid-cavernous fistula- [facility] Carotid-cavernous fistula- Primary Arteriovenous fistula, acquired documented in this encounter [facility] Summary Purpose Family History No Family History Records FoundNo Family History Records Found Advance Directives No Advanced Directives Records FoundDocuments on File Type Date Recorded 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 Advance Directive(s) 07/10/2021 11:22 PM Additional Source Comments INFORMATION SOURCE (unrecogn ized section and content) DATE CREATED AUTHOR 05/07/2021 [facility] DATE CREATED AUTHOR AUTHOR'S ORGANIZ ATION 01/08/2022 [facility] Source Comments (unrecognize d section and content) In the event this informatio n is protected by the Federal Confidentiality of Alcohol and Drug Abuse Patient Records regulations: The Federal rules restrict any use of the information to criminally investigate or prosecute any alcohol or drug abuse patient.[facility] the event this information is protected by the Federal Confidentiality of Alcohol and Drug Abuse Patient Records regulations: The Federal rules restrict any use of the information to criminally investigate or prosecute any alcohol or drug abuse patient.[facility] the event this information is protected by the Federal Confidentiality of Alcohol and Drug Abuse Patient Records regulations: The Federal rules restrict any use of the information to criminally investigate or prosecute any alcohol or drug abuse patient.[facility] the event this information is protected by the Federal Confidentiality of Alcohol and Drug Abuse Patient Records regulations: The Federal rules restrict any use of the information to criminally investigate or prosecute any alcohol or drug abuse patient.[facility] the event this information is protected by the Federal Confidentiality of Alcohol and Drug Abuse Patient Records regulations: The Federal rules restrict any use of the information to criminally investigate or prosecute any alcohol or drug abuse patient.[facility] Reason for Visit (unrecogniz ed section and content) Reason Comments Follow Up Phone Call Post Discharge F/U attempt made. No answer. Reason Comments carotid cavernous fistula Specialty Diagnoses / Procedures Referred By Bert castañeda Referred To Contact INTERNAL MEDICINE Diagnoses physical Procedures self pay required [employer] [address] [place] [address] [address] [place] [address] Referral ID Status Reason Start Date Expiration Date Visits Requested Visits Authorized [id number] Authorized Financial Clearance Required - Self Pay Patient Cleared - Qualified 100% FAS 07/16/2021 10/14/2021 99 99 Reason Comments Appointment DSA Reason Comments Procedure DSA with Dr. Mcgarry on 01/11/22 Reason Comments Cancel Angiogram for 01/11/22 Care Teams (unrecognized sec tion and content) Federal Aid Coordinator Relationship Specialty [place] [address] [place] [address] [place] [address] [phone] PCP - General Internal Medicine 08/10/21 Reji [address] [place], [place] [id number] Ophthalmology 08/10/21 Federal Aid Coordinator Relationship Specialty [place] [address] [place] [address] [place] [address] [phone] PCP - General Internal Medicine 08/10/21 Reji [address] [place], [place] [id number] Ophthalmology 08/10/21 Federal Aid Coordinator Relationship Specialty [place] [address] [place] [address] [place] [address] [phone] PCP - General Internal Medicine 08/10/21 Reji [address] [place], [place] [id number] Ophthalmology 08/10/21 FOR RECORDS PERTAINING TO PATIENTS WHO ARE OR HAVE BEEN ENROLLED IN A CHEMICAL DEPENDENCY/SUBSTANCEABUSE PROGRAM, SOME INFORMATION MAY BE OMITTED. This clinical summary was aggregated from multiple sources. Caution should be exercised in using it in the provision of clinical care. This summary normalizes information from multiple sources, and as a consequence, information in this document may materially change the coding, format and clinical context of patient data. In addition, data may be omitted in some cases. CLINICAL DECISIONS SHOULD BE BASED ON THE PRIMARY CLINICAL RECORDS. [facility] provides no warranty or guarantee of the accuracy or completeness of information in this document.
--- NOTE | 2024-10-01 20:05 | ED.VIS.FALL ---
HPI HPI - Fall History of Present Illness Chief Complaint: Fall Informant: patient and family Narrative Narrative: Presents here with daughter after seeing ophthalmology. She had mechanical fall 9 days ago at home. Tripped going up the step when her foot got caught. She landed right on her face. She did not lose consciousness. She is not on any blood thinners. There was significant bruising to her face that it is improving. She had vision changes therefore she went to see ophthalmology who evaluated her. They recommended her to come to the ED for CT scans. No headache no neck pain no chest pain. No extremity pain. States there was bruising to her left wrist that is improved. She is able to ambulate with no difficulties. PFSH PFSH Medical History no medical history Allergy/AdvReac Type Severity Reaction Status Date / Time No Known Allergies Allergy Verified 10/01/24 17:00 Family History no significant family his Surgical History no surgical history Social History Smoking Status: Never smoker ROS ROS ED Constitutional Constitutional ED: Denies fever(s) Eyes Eyes: Reports blurry vision Cardiovascular Cardiovascular: Denies chest pain Respiratory/Chest Respiratory/Chest: Denies cough Gastrointestinal Gastrointestinal: Denies diarrhea or vomiting Musculoskeletal Musculoskeletal: Denies none Integumentary Denies rash or wounds Neurologic Neurologic: Denies weakness EXAM Physical Exam Const Vital Signs: 10/01/24 16:58 10/01/24 19:30 10/01/24 19:30 Temperature 98 F Temperature Source Oral Pulse Rate 77 78 Respiratory Rate 14 Respiratory Effort Normal Non-Labored Blood Pressure 165/72 H 138/78 H Blood Pressure Mean 103 98 Pulse Ox 98 99 Oxygen Delivery Method Room Air Positive well nourished and well developed Constitutional Narrative: GCS 15. General Appearance ED: well developed and NAD HEENT Reports moist mucous membranes HEENT Narrative: Small frontal hematoma 2.5 cm resolving. There is resolving ecchymosis around the nasal bridge and maxillary currently yellow in color. No trismus of the jaw. normocephalic Eyes General Eye ED: Yes normal appearance of both eyes Neck full ROM Chest Wall inspection of chest normal and palpation of chest normal Chest: Negative for tenderness Resp normal respiratory effort and normal air movement Effort and Inspection: symmetric chest movement; Negative for respiratory distress Cardio regular rate, regular rhythm and no murmurs Peripheral Pulses: pulses 2+ throughout GI normal to inspection, nondistended, normoactive bowel sounds and non-tender Palpation: Negative for guarding or rebound tenderness present Extremity normal to inspection General Extremety ED: Negative for edema or tenderness General Extremity: Negative for edema Neuro oriented x3, CN's II-XII intact bilaterally and no sensory deficits noted Sensorium / Orientation: awake and alert Skin no rashes or lesions noted and no wounds MDM MDM MDM Narrative Medical decision making narrative: Interventions / MDM: Differential diagnosis: Facial contusion, fall Diagnosis considered but do not suspect: Intracranial hemorrhage, fractures however CT is negative. My EKG interpretation: N/A Imaging independently reviewed and interpreted by myself: CT head/facial bones/cervical spine: No fractures no intracranial hemorrhage or soft tissue swelling noted. Also read by radiology. External documents reviewed: N/A Test considered but not ordered:N/A ED course: Mechanical fall head injury. Cleared by ophthalmology from her vision. Bruising that is improving. Trauma scans head and neck facial bones obtained. Results CT scan no fracture no intracranial hemorrhage. Residual bruising that will improve. Reassured on findings. Outpatient follow-up. All questions were answered. Re-evaluation: stable Disposition discussed with patient/family/significant other: Patient and family Case discussed with consulting clinician: N/A This note was generated with [employer] dictation software. It may contain incorrect words, spelling, and punctuation that were not noted in checking the note before signing. Radiography Diagnostic Testing: Clinical Impression(s) from Imaging Studies Brain CT 10/01/24 18:26 IMPRESSION: No acute intracranial abnormalities. Reading Location: [facility] Cervical Spine CT 10/01/24 18:26 IMPRESSION: No acute injury to the cervical spine. Reading Location: [facility] Facial/Sinus 10/01/24 18:26 IMPRESSION: No acute injuries to the maxillofacial bones. Left frontal scalp hematoma. Reading Location: [facility] Discharge Plan Triage Chief Complaint: Fall ED Provider: Santiago Paz Dx/Rx/DC Orders Clinical Impression: CHI (closed head injury), Contusion of face, Fall Instructions: ED Facial Contusion, ED Head Injury (Adult) Primary Care Provider: Itzel Chaves NP Referrals: Itzel Chaves NP, RADIOLOGY TEACHER-C [Primary Care Provider] - Activity Restrictions/Additional Instructions: CT scan head neck and face. No fractures no intracranial hemorrhage. Facial hematoma noted. This will resolve. Print Language: Moldovan Disposition Disposition: Home, Self Care Discharge Date/Time: 10/01/24 20:03
== END 2024-10-01 20:03 | disposition home or self-care (01) ==
PROVIDERS: Emergency Provider Emergency Medicine; PCP Nurse Practitioner Family; Visit Provider Emergency Medicine
DX: S00.83XA Contusion of other part of head, initial encounter (principal); S00.33XA Contusion of nose, initial encounter; S60.212A Contusion of left wrist, initial encounter; W10.9XXA Fall (on) (from) unspecified stairs and steps, initial encounter
CPT/HCPCS: 70450; 70486; 72125; 99282